=== PATIENT | female | born 1960 | race Caucasian/White ===

== ENCOUNTER 2018-08-10 23:07 | Inpatient (IN) ==
[2018-08-11 03:21] LABS: Baso % (Auto) 0.7 % (0.0-2.0); Eos # (Auto) 0.1 th/mm3 (0.0-0.4); Eos % (Auto) 2.4 % (0.0-4.0); Hematocrit 42.7 % (35.0-46.0); Hemoglobin 14.4 gm/dL (11.6-15.3); Lymph # (Auto) 2.4 th/mm3 (1.0-4.8); Lymph % (Auto) 47.2 % (9.0-44.0); Mean Corpuscular HGB Conc 33.8 % (32.0-36.0); Mean Corpuscular Hemoglobin 32.3 pg (27.0-34.0); Mean Corpuscular Volume 95.5 fL (80.0-100.0); Mean Platelet Volume 7.8 fL (7.0-11.0); Mono # (Auto) 0.4 th/mm3 (0.0-0.9); Mono % (Auto) 7.1 % (0.0-8.0); Neut # (Auto) 2.2 th/mm3 (1.8-7.7); Neut % (Auto) 42.6 % (16.0-70.0); Platelet Count 178 th/mm3 (150-450); Red Blood Count 4.47 mil/mm3 (4.00-5.30); Red Cell Distribution Width 13.5 % (11.6-17.2); White Blood Count 5.2 th/mm3 (4.0-11.0)
--- NOTE | 2018-08-11 03:30 | XR ---
EXAM DATE: 08/11/2018 3:24 AM EDT AGE/SEX: 57 years / Female INDICATIONS: Shortness of breath. CLINICAL DATA: This is the patient's initial encounter. Patient reports that signs and symptoms have been present for 1 day and indicates a pain score of 0/10. MEDICAL/SURGICAL HISTORY: None. None. COMPARISON: [facility], XR CHEST PA AND LAT, 11/04/2015. . FINDINGS: There is slight linear parenchymal opacity at the left lung base which may be a chronic finding. Righ t lung is clear. No significant effusion suspected. Cardiac contours are stable and satisfactory. CONCLUSION: Mild parenchymal opacity at the left lung base, similar to prior study Electronically signed by: Paresh Casas MD 08/11/2018 3:29 AM EDT
[2018-08-11 03:47] LABS: Alkaline Phosphatase 146 U/L (45-117); Total Protein 7.1 g/dL (6.4-8.2); Troponin I 0.15 ng/mL (0.02-0.05)
[2018-08-11] MEDS ORDERED: Acetaminophen 325 MG Tablet PO PRN (03:54)
[2018-08-11] MEDS ORDERED: Bisacodyl 10 MG Supp RECTAL PRN (03:54)
[2018-08-11 03:57] LABS: Alanine Aminotransferase 26 U/L (10-53); Albumin 3.8 g/dL (3.4-5.0); Anion Gap 8 meq/L (5-15); Aspartate Aminotransferase 22 U/L (15-37); Blood Urea Nitrogen 10 mg/dL (7-18); Calcium 8.6 mg/dL (8.5-10.1); Carbon Dioxide 26.2 meq/L (21.0-32.0); Chloride 109 meq/L (98-107); Glomerular Filtration Rate 39 mL/min (>89); Glucose,Random 96 mg/dL (74-106); Potassium 3.8 meq/L (3.5-5.1); Sodium 143 meq/L (136-145)
[2018-08-11] MEDS ORDERED: Sodium Chloride 0.9% 2 ML Flush PRN IV.FLUSH (04:09)
--- NOTE | 2018-08-11 04:12 | ED ---
HPI General Chief Complaint: Medical Clearance Stated Complaint: SOB/headache Time Seen by Provider: 08/11/18 02:47 Source: patient and family Mode of arrival: ambulatory Limitations: no limitations History of Present Illness HPI narrative: 57-year-old female came to the emergency room with history of substernal chest pain that has been off and on for past 1 month but progressively worsening over past 1 week. However since 10 PM of 08/09/2018 patient has been having continuous chest pain. Yesterday when she woke up she noticed that the pain was worse upon exertion. She also started having shortness of breath mostly on exertion. Her son is here with her who lives in [place] but says that she has been having progressive shortness of breath on exertion that has been going on for a few days now. As per the son patient likes to downplay her symptoms and he is really concerned about her. Patient has never had any cardiac workup. She has history of COPD. She does not require oxygen at home. No previous history of DVT or PE. No recent prolonged immobilization. Patient said currently her pain was 5 out of 10 with no radiation. MD complaint: Reports chest pain STEMI Alert: No Onset (ago): day(s) Duration: constant Onset: during exertion Pain location: Reports substernal Severity: moderate Severity scale (1-10): 5 Quality: Reports heaviness Pain radiation: Reports none Relieving factors: rest Exacerbating factors: movement Associated symptoms: Reports dyspnea Related Data Home Medications Medication Instructions Recorded Confirmed atorvastatin 40 mg PO DAILY 08/11/18 08/11/18 budesonide-formoterol [Symbicort] 2 puff INHALATION BID 08/11/18 08/11/18 chlorpromazine 25 mg PO BID 08/11/18 08/11/18 cyclobenzaprine 10 mg PO BID 08/11/18 08/11/18 divalproex 500 mg PO BID 08/11/18 08/11/18 hydroxyzine HCl 50 mg PO BID 08/11/18 08/11/18 levothyroxine 175 mcg PO DAILY 08/11/18 08/11/18 quetiapine 50 mg PO BID 08/11/18 08/11/18 quetiapine 300 mg PO HS 08/11/18 08/11/18 ranitidine HCl 150 mg PO DAILY 08/11/18 08/11/18 sucralfate 1 g PO DAILY 08/11/18 08/11/18 sumatriptan succinate 50 mg PO HS 08/11/18 08/11/18 venlafaxine 100 mg PO DAILY 08/11/18 08/11/18 Allergies Allergy/AdvReac Type Severity Reaction Status Date / Time No Known Allergies Allergy Uncoded 06/29/17 09:56 Review of Systems ROS: all other systems reviewed are negative Cardiovascular Reports chest pain at rest Respiratory Reports dyspnea on exertion [facility] Medical History Medical History Asthma (Acute) Chronic kidney disease (Acute) Chronic migraine (Acute) History of endoscopy (Acute) Social History Social History Substance History: No History of Abuse Second Hand Smoke Exposure: No Smoking Status: Former smoker Tobacco Type: Cigarettes How Often Do You Have a Drink Containing Alcohol: 2 to 4 times a month Recent Travel in [facility] within the Last 8 Weeks: No Recent Out of Country Travel within the Last 8 Weeks: No Immunization History Tetanus Immunization: <5 Years Exam Narrative Exam Narrative: GENERAL: Awake, alert, anxious, mild distress SKIN: Focused skin assessment warm/dry. HEAD: Atraumatic. Normocephalic. EYES: Pupils equal and round. No scleral icterus. No injection or drainage. ENT: No nasal bleeding or discharge. Mucous membranes pink and moist. NECK: Trachea midline. No JVD. CARDIOVASCULAR: Regular rate and rhythm. No murmur appreciated. RESPIRATORY: No accessory muscle use. Clear to auscultation. Breath sounds equal bilaterally. GASTROINTESTINAL: Abdomen soft, non-tender, nondistended. Hepatic and splenic margins not palpable. MUSCULOSKELETAL: No obvious deformities. No clubbing. No cyanosis. No edema. NEUROLOGICAL: Awake and alert. No obvious cranial nerve deficits. Motor grossly within normal limits. Normal speech. PSYCHIATRIC: Appropriate mood and affect; insight and judgment normal. Course Initial Documented Vital Signs Temperature 97.7 F 08/10/18 23:35 Pulse Rate 102 H 08/10/18 23:35 Respiratory Rate 18 08/10/18 23:35 Blood Pressure 136/74 08/10/18 23:35 Pulse Oximetry 98 08/10/18 23:35 Last Documented Vital Signs Temperature 98.3 F 08/12/18 23:33 Pulse Rate 65 08/12/18 23:33 Respiratory Rate 18 08/12/18 23:33 Blood Pressure 140/72 08/12/18 23:33 Pulse Oximetry 96 08/12/18 23:33 Critical Care Time Critical Care Time: Yes Total Critical Care Time: 30 Attestation: Aggregate critical care time was 30 minutes. Time to perform other separately billable procedures was not included in the critical care time. My time did not include minutes spent treating any other patients simultaneously or on activities that did not directly contribute to the patient's treatment. The services I provided to this patient were to treat and/or prevent clinically significant deterioration that could result in: Non-STEMI, heparin bolus and I provided critical care services requiring my management, as noted below: Chart data review, documentation time, medication orders and management, vital sign assessments/reviewing monitor data, ordering and reviewing lab tests, ordering and interpreting/reviewing x-rays and diagnostic studies, care of the patient and discussion of the patient with the admitting physicians. Medical Decision Making MDM Narrative Medical decision making narrative: 4:18 AM blood test results are back and troponin is elevated. I explained all this to the patient. She will be started on heparin bolus and drip. She was accepted by the hospitalist. Medical Screen Exam Complete: Yes Emergency Medical Condition: Yes Lab Data Result diagrams: 08/12/18 11:10 08/12/18 11:10 Lab Results 08/11/18 08/11/18 08/11/18 Range/Units 03:00 03:00 03:00 WBC 5.2 (4.0-11.0) th/mm3 RBC 4.47 (4.00-5.30) mil/mm3 Hgb 14.4 (11.6-15.3) gm/dL Hct 42.7 (35.0-46.0) % MCV 95.5 (80.0-100.0) fL MCH 32.3 (27.0-34.0) pg MCHC 33.8 (32.0-36.0) % RDW 13.5 (11.6-17.2) % Plt Count 178 (150-450) th/mm3 MPV 7.8 (7.0-11.0) fL Neut % (Auto) 42.6 (16.0-70.0) % Lymph % (Auto) 47.2 H (9.0-44.0) % Marin % (Auto) 7.1 (0.0-8.0) % Eos % (Auto) 2.4 (0.0-4.0) % Baso % (Auto) 0.7 (0.0-2.0) % Neut # (Auto) 2.2 (1.8-7.7) th/mm3 Lymph # (Auto) 2.4 (1.0-4.8) th/mm3 Marin # (Auto) 0.4 (0.0-0.9) th/mm3 Eos # (Auto) 0.1 (0.0-0.4) th/mm3 Baso # (Auto) 0.0 (0.0-0.2) th/mm3 WBC Differential . Differential Comment Auto diff final PT (9.8-11.6) sec INR Ratio APTT (23.4-31.7) sec D-Dimer Quant (PE/DVT) 0.19 (0.00-0.50) mg/L FEU Sodium 143 (136-145) meq/L Potassium 3.8 (3.5-5.1) meq/L Chloride 109 H (98-107) meq/L Carbon Dioxide 26.2 (21.0-32.0) meq/L Anion Gap 8 (5-15) meq/L BUN 10 (7-18) mg/dL Creatinine 1.40 H (0.50-1.00) mg/dL Estimated GFR 39 L (>89) mL/min Random Glucose 96 (74-106) mg/dL Hemoglobin A1c (4.3-6.0) % Calcium 8.6 (8.5-10.1) mg/dL Total Bilirubin 0.4 (0.2-1.0) mg/dL AST 22 (15-37) U/L ALT 26 (10-53) U/L Alkaline Phosphatase 146 H (45-117) U/L Troponin I 0.15 H (0.02-0.05) ng/mL Total Protein 7.1 (6.4-8.2) g/dL Albumin 3.8 (3.4-5.0) g/dL Triglycerides (42-150) mg/dL Cholesterol (120-200) mg/dL LDL Cholesterol, Calc (0-99) mg/dL HDL Cholesterol (40.0-60.0) mg/dL Cholesterol/HDL Ratio Ratio Beta HCG, Quant (0-5) mIU/mL 08/11/18 08/11/18 08/11/18 Range/Units 03:00 06:21 06:21 WBC 5.4 (4.0-11.0) th/mm3 RBC 4.38 (4.00-5.30) mil/mm3 Hgb 14.4 (11.6-15.3) gm/dL Hct 42.9 (35.0-46.0) % MCV 97.9 (80.0-100.0) fL MCH 32.9 (27.0-34.0) pg MCHC 33.6 (32.0-36.0) % RDW 13.8 (11.6-17.2) % Plt Count 169 (150-450) th/mm3 MPV 8.0 (7.0-11.0) fL Neut % (Auto) (16.0-70.0) % Lymph % (Auto) (9.0-44.0) % Marin % (Auto) (0.0-8.0) % Eos % (Auto) (0.0-4.0) % Baso % (Auto) (0.0-2.0) % Neut # (Auto) (1.8-7.7) th/mm3 Lymph # (Auto) (1.0-4.8) th/mm3 Marin # (Auto) (0.0-0.9) th/mm3 Eos # (Auto) (0.0-0.4) th/mm3 Baso # (Auto) (0.0-0.2) th/mm3 WBC Differential Differential Comment PT 10.1 (9.8-11.6) sec INR 1.0 Ratio APTT 26.9 (23.4-31.7) sec D-Dimer Quant (PE/DVT) (0.00-0.50) mg/L FEU Sodium (136-145) meq/L Potassium (3.5-5.1) meq/L Chloride (98-107) meq/L Carbon Dioxide (21.0-32.0) meq/L Anion Gap (5-15) meq/L BUN (7-18) mg/dL Creatinine (0.50-1.00) mg/dL Estimated GFR (>89) mL/min Random Glucose (74-106) mg/dL Hemoglobin A1c 5.1 (4.3-6.0) % Calcium (8.5-10.1) mg/dL Total Bilirubin (0.2-1.0) mg/dL AST (15-37) U/L ALT (10-53) U/L Alkaline Phosphatase (45-117) U/L Troponin I (0.02-0.05) ng/mL Total Protein (6.4-8.2) g/dL Albumin (3.4-5.0) g/dL Triglycerides (42-150) mg/dL Cholesterol (120-200) mg/dL LDL Cholesterol, Calc (0-99) mg/dL HDL Cholesterol (40.0-60.0) mg/dL Cholesterol/HDL Ratio Ratio Beta HCG, Quant (0-5) mIU/mL 08/11/18 08/11/18 08/11/18 Range/Units 09:59 10:35 17:04 WBC (4.0-11.0) th/mm3 RBC (4.00-5.30) mil/mm3 Hgb (11.6-15.3) gm/dL Hct (35.0-46.0) % MCV (80.0-100.0) fL MCH (27.0-34.0) pg MCHC (32.0-36.0) % RDW (11.6-17.2) % Plt Count (150-450) th/mm3 MPV (7.0-11.0) fL Neut % (Auto) (16.0-70.0) % Lymph % (Auto) (9.0-44.0) % Marin % (Auto) (0.0-8.0) % Eos % (Auto) (0.0-4.0) % Baso % (Auto) (0.0-2.0) % Neut # (Auto) (1.8-7.7) th/mm3 Lymph # (Auto) (1.0-4.8) th/mm3 Marin # (Auto) (0.0-0.9) th/mm3 Eos # (Auto) (0.0-0.4) th/mm3 Baso # (Auto) (0.0-0.2) th/mm3 WBC Differential Differential Comment PT (9.8-11.6) sec INR Ratio APTT 40.9 H D 46.2 H (23.4-31.7) sec D-Dimer Quant (PE/DVT) (0.00-0.50) mg/L FEU Sodium (136-145) meq/L Potassium (3.5-5.1) meq/L Chloride (98-107) meq/L Carbon Dioxide (21.0-32.0) meq/L Anion Gap (5-15) meq/L BUN (7-18) mg/dL Creatinine (0.50-1.00) mg/dL Estimated GFR (>89) mL/min Random Glucose (74-106) mg/dL Hemoglobin A1c (4.3-6.0) % Calcium (8.5-10.1) mg/dL Total Bilirubin (0.2-1.0) mg/dL AST (15-37) U/L ALT (10-53) U/L Alkaline Phosphatase (45-117) U/L Troponin I 0.11 H (0.02-0.05) ng/mL Total Protein (6.4-8.2) g/dL Albumin (3.4-5.0) g/dL Triglycerides 74 (42-150) mg/dL Cholesterol 156 (120-200) mg/dL LDL Cholesterol, Calc 61 (0-99) mg/dL HDL Cholesterol 80.7 H (40.0-60.0) mg/dL Cholesterol/HDL Ratio 1.93 Ratio Beta HCG, Quant (0-5) mIU/mL 08/12/18 08/12/18 08/12/18 Range/Units 11:10 11:10 11:10 WBC 4.0 (4.0-11.0) th/mm3 RBC 4.19 (4.00-5.30) mil/mm3 Hgb 14.1 (11.6-15.3) gm/dL Hct 40.0 (35.0-46.0) % MCV 95.5 (80.0-100.0) fL MCH 33.6 (27.0-34.0) pg MCHC 35.1 (32.0-36.0) % RDW 13.5 (11.6-17.2) % Plt Count 132 L (150-450) th/mm3 MPV 8.1 (7.0-11.0) fL Neut % (Auto) 55.5 (16.0-70.0) % Lymph % (Auto) 34.8 (9.0-44.0) % Marin % (Auto) 6.4 (0.0-8.0) % Eos % (Auto) 2.9 (0.0-4.0) % Baso % (Auto) 0.4 (0.0-2.0) % Neut # (Auto) 2.2 (1.8-7.7) th/mm3 Lymph # (Auto) 1.4 (1.0-4.8) th/mm3 Marin # (Auto) 0.3 (0.0-0.9) th/mm3 Eos # (Auto) 0.1 (0.0-0.4) th/mm3 Baso # (Auto) 0.0 (0.0-0.2) th/mm3 WBC Differential . Differential Comment Auto diff final PT (9.8-11.6) sec INR Ratio APTT 49.5 H (23.4-31.7) sec D-Dimer Quant (PE/DVT) (0.00-0.50) mg/L FEU Sodium 145 (136-145) meq/L Potassium 3.9 (3.5-5.1) meq/L Chloride 113 H (98-107) meq/L Carbon Dioxide 24.0 (21.0-32.0) meq/L Anion Gap 8 (5-15) meq/L BUN 7 (7-18) mg/dL Creatinine 1.05 H (0.50-1.00) mg/dL Estimated GFR 54 L (>89) mL/min Random Glucose 96 (74-106) mg/dL Hemoglobin A1c (4.3-6.0) % Calcium 8.4 L (8.5-10.1) mg/dL Total Bilirubin 0.4 (0.2-1.0) mg/dL AST 20 (15-37) U/L ALT 23 (10-53) U/L Alkaline Phosphatase 131 H (45-117) U/L Troponin I (0.02-0.05) ng/mL Total Protein 6.7 (6.4-8.2) g/dL Albumin 3.4 (3.4-5.0) g/dL Triglycerides (42-150) mg/dL Cholesterol (120-200) mg/dL LDL Cholesterol, Calc (0-99) mg/dL HDL Cholesterol (40.0-60.0) mg/dL Cholesterol/HDL Ratio Ratio Beta HCG, Quant 5 (0-5) mIU/mL Imaging Data Radiologist's impression: Chest X-Ray 08/11/18 03:03 CONCLUSION: Mild parenchymal opacity at the left lung base, similar to prior study ECG Data Interpretation: Twelve-lead EKG was reviewed by me. Normal sinus rhythm, left axis deviation, nonspecific ST-T wave changes. Heart rate of 96 bpm. Discharge Plan Discharge Disposition Patient Disposition: 30 Still Patient Physicians Team ED Provider: Ghislaine Merlos Primary Care Provider: Kevyn Rausch III Attending Provider: Pam Trent Other Providers: Domo Kaiser Discharge Interventions Interventions: ED Discharge Assessment Last Done: 08/11/18 08:19 Vital Signs Last Done: 08/11/18 02:25 Status ED Status: Left Department Discharge Information Discharge Date/Time: 08/11/18 08:20
--- NOTE | 2018-08-11 04:30 | P.HPIM ---
History of Present Illness Primary Care Physician: Kevyn Rausch III, MD, R2 History of Present Illness: This is a 57-year-old female with a PMH of Migraine, CKD Stage III and h/o Hemiplegic Migraine who presented to the ER w/ complaints of chest pain, SOB and migraine. States chest pain has been ongoing x1 month, intermittent, substernal, associated w/ SOB, worse w/ exertion. No h/o similar symptoms. Also reports ongoing migraine, previously on Topamax but h/o CVA 7yrs ago thought to be [employer]ORD[employer] Migraine. Denies fever or chills. On arrival, BP 136/74, HR 102, O2 sat 98% on RA, Afebrile. CBC unremarkable. Creatinine 1.40, no labs in our system, however pt pulled up [facility] results w/ creatinine 1.36. Trop 0.15. EKG w/ no acute ischemia. CXR w/ mild parenchymal opacity LLL, similar to previous study. Currently on Heparin gtt. - Diagnosis (1) NSTEMI (non-ST elevated myocardial infarction) (2) CKD (chronic kidney disease) (3) Migraine Inpatient Certification: I certify that the inpatient services were ordered in accordance with Medicare regulations governing the order. This includes certification that hospital inpatient services are reasonable and necessary and in the case of services not specified as inpatient-only under 42 CFR 419.22(n), that they are appropriately provided as inpatient services in accordance to with the 2-midnight benchmark under 43 CFR 412.3(e) Estimated Total Length of Stay (Days): 2 Plans for Post Hospital Care: Not yet determined Review of Systems PAST FAMILY HISTORY: Reviewed. No h/o DM or CAD All other systems reviewed negative except as stated in HPI PMFSH - History History Provided By: Patient - Medical History Medical History: Medical History (Last Reviewed 08/11/18 @ 04:17 by Ghislaine Merlos MD) Asthma Chronic kidney disease Chronic migraine History of endoscopy - Tobacco History Second Hand Smoke Exposure: No Tobacco Use In Past 30 Days: No Smoking Status: Former smoker - Alcohol History How Often Do You Have a Drink Containing Alcohol: Never - Substance Use History Substance History: No History of Abuse - Travel History Recent Travel in the [place] Within the Last 8 Weeks: No Recent Travel Out of the Country Within the Last 8 Weeks: No - Immunization History Tetanus Immunization: <5 Years Medications and Allergies Active Medications: Active Medications Acetaminophen (Tylenol) 650 mg PO Q4H PRN PRN Reason: Temp > 100.4 Al Hydroxide/Mg Hydroxide (Milk Of Magnesia Liq) 30 ml PO Q12H PRN PRN Reason: Mild Constipation Aspirin (Ecotrin) 81 mg PO DAILY [facility] Bisacodyl (Dulcolax Supp) 10 mg RECTAL DAILY PRN PRN Reason: SEVERE CONSITIPATION Sodium Chloride (Ns Inj) 1,000 mls @ 100 mls/hr IV.CONT .Q10H [facility] Heparin Sodium/Dextrose (Heparin/D5w 25,000 U/250 Ml) 25,000 unit in 250 mls @ 0 mls/hr IV.CONT TITRATE PRN; Protocol PRN Reason: Per Protocol Lactulose (Lactulose Liq) 30 ml PO DAILY PRN PRN Reason: SEVERE CONSITIPATION Metoprolol Tartrate (Lopressor) 12.5 mg PO BID [facility] Morphine Sulfate (Morphine Inj) 2 mg IV.PUSH Q4H PRN PRN Reason: PAIN 6-10 Nitroglycerin (Nitro-Bid 2% Oint) 0.5 inch TOPICAL Q6HR PRN PRN Reason: CHEST PAIN Ondansetron HCl (Zofran Inj) 4 mg IV.PUSH Q6H PRN PRN Reason: NAUSEA OR VOMITING Pravastatin Sodium (Pravachol) 40 mg PO DAILY [facility] Senna/Docusate Sodium (Jenna-Colace) 1 tab PO BID [facility] Sennosides (Senokot) 17.2 mg PO Q12H PRN PRN Reason: Moderate Constipation Sodium Chloride (Ns Flush) 2 ml IV.FLUSH BID [facility] Sodium Chloride (Ns Flush) 2 ml IV.FLUSH PRN PRN PRN Reason: FLUSH AFTER USING IV ACCESS Allergies Allergy/AdvReac Type Severity Reaction Status Date / Time No Known Allergies Allergy Uncoded 06/29/17 09:56 Home Medications Medication Instructions Recorded Confirmed Type atorvastatin 40 mg PO DAILY 08/11/18 08/11/18 History budesonide-formoterol [Symbicort] 2 puff INHALATION BID 08/11/18 08/11/18 History chlorpromazine 25 mg PO BID 08/11/18 08/11/18 History cyclobenzaprine 10 mg PO BID 08/11/18 08/11/18 History divalproex 500 mg PO BID 08/11/18 08/11/18 History hydroxyzine HCl 50 mg PO BID 08/11/18 08/11/18 History levothyroxine 175 mcg PO DAILY 08/11/18 08/11/18 History quetiapine 50 mg PO BID 08/11/18 08/11/18 History quetiapine 300 mg PO HS 08/11/18 08/11/18 History ranitidine HCl 150 mg PO DAILY 08/11/18 08/11/18 History sucralfate 1 g PO DAILY 08/11/18 08/11/18 History sumatriptan succinate 50 mg PO HS 08/11/18 08/11/18 History venlafaxine 100 mg PO DAILY 08/11/18 08/11/18 History Exam Vital signs: Vital Signs 08/10/18 23:35 08/11/18 02:25 08/11/18 04:03 Temperature 97.7 F Pulse Rate 102 H 90 93 H Respiratory Rate 18 20 Blood Pressure 136/74 158/70 H Pulse Oximetry 98 100 99 Intake & Output 08/10/18 08/10/18 08/11/18 06:59 18:59 06:59 Weight 86.183 kg Narrative: PE: GENERAL: Extremely pleasant middle-aged female in no acute distress. SKIN: Focused skin assessment warm and dry. Vitiligo HEENT: PERRLA, EOMI. No scleral icterus or conjunctival pallor. No lid lag or facial droop. CARDIOVASCULAR: Regular rate and rhythm. No obvious murmurs to auscultation. No chest tenderness to palpation. RESPIRATORY: No obvious rhonchi or wheezing. Clear to auscultation. Breath sounds equal bilaterally. GASTROINTESTINAL: Abdomen soft, non-tender, nondistended. BS normal. MUSCULOSKELETAL: Extremities without clubbing, cyanosis, or edema. No obvious deformities. NEUROLOGICAL: Awake, alert and oriented x4. No focal neurologic deficits. Moving both upper and lower extremities spontaneously. PSYCHIATRIC: Appropriate mood and affect. Insight and judgment normal. Results - Labs CBC & Chem 7: 08/11/18 03:00 08/11/18 03:00 Labs: Short CBC 08/11/18 Range/Units 03:00 WBC 5.2 (4.0-11.0) th/mm3 Hgb 14.4 (11.6-15.3) gm/dL Hct 42.7 (35.0-46.0) % Plt Count 178 (150-450) th/mm3 BMP 08/11/18 03:00 Sodium 143 Potassium 3.8 Chloride 109 H Carbon Dioxide 26.2 BUN 10 Creatinine 1.40 H Calcium 8.6 Cardiac Enzymes 08/11/18 Range/Units 03:00 Troponin I 0.15 H (0.02-0.05) ng/mL Liver Function 08/11/18 Range/Units 03:00 Total Bilirubin 0.4 (0.2-1.0) mg/dL AST 22 (15-37) U/L ALT 26 (10-53) U/L Alkaline Phosphatase 146 H (45-117) U/L Albumin 3.8 (3.4-5.0) g/dL - Imaging Impressions Chest X-Ray 08/11/18 03:03 CONCLUSION: Mild parenchymal opacity at the left lung base, similar to prior study Caprini VTE Risk Assessment Caprini VTE Risk Assessment: Moderate/High Risk (score >= 2) Caprini Risk Assessment Model: Point Value = 1 Point Value = 2 Point Value = 3 Point Value = 5 Age 41-60 Minor surgery BMI > 25 kg/m2 Swollen legs Varicose veins or History of unexplained or recurrent spontaneous Oral contraceptives or hormone replacement Sepsis (< 1 month) Serious lung disease, including pneumonia (< 1 month) Abnormal pulmonary function Acute myocardial infarction Congestive heart failure (< 1 month) History of inflammatory bowel disease Medical patient at bed rest Age 61-74 Arthroscopic surgery Major open surgery (> 45 min) Laparoscopic surgery (> 45 min) Malignancy Confined to bed (> 72 hours) Immobilizing plaster cast Central venous access Age >= 75 History of VTE Family history of VTE Factor V Leiden Prothrombin [id number] Lupus anticoagulant Anticardiolipin antibodies Elevated serum homocysteine Heparin-induced thrombocytopenia Other congenital or acquired thrombophilia Stroke (< 1 month) Elective arthroplasty Hip, pelvis, or leg fracture Acute spinal cord injury (< 1 month) Prophylaxis Regimen: Total Risk Factor Score Risk Level Prophylaxis Regimen 0-1 Low Early ambulation 2 Moderate Order ONE of the following: *Sequential Compression Device (SCD) *Heparin 5000 units SQ BID 3-4 Higher Order ONE of the following medications: *Heparin 5000 units SQ TID *Enoxaparin/Lovenox 40 mg SQ daily (WT < 150 kg, CrCl > 30 mL/min) *Enoxaparin/Lovenox 30 mg SQ daily (WT < 150 kg, CrCl > 10-29 mL/min) *Enoxaparin/Lovenox 30 mg SQ BID (WT < 150 kg, CrCl > 30 mL/min) AND/OR *Sequential Compression Device (SCD) 5 or more Highest Order ONE of the following medications: *Heparin 5000 units SQ TID (Preferred with Epidurals) *Enoxaparin/Lovenox 40 mg SQ daily (WT < 150 kg, CrCl > 30 mL/min) *Enoxaparin/Lovenox 30 mg SQ daily (WT < 150 kg, CrCl > 10-29 mL/min) *Enoxaparin/Lovenox 30 mg SQ BID (WT < 150 kg, CrCl > 30 mL/min) AND *Sequential Compression Device (SCD) Assessment and Plan - Assessment (1) NSTEMI (non-ST elevated myocardial infarction) Code(s): I21.4 - Non-ST elevation (NSTEMI) myocardial infarction Status: Acute (2) CKD (chronic kidney disease) Code(s): N18.9 - Chronic kidney disease, unspecified Status: Acute (3) Migraine Code(s): G43.909 - Migraine, unspecified, not intractable, without status migrainosus Status: Acute - Plan A/P: 1. NSTEMI: c/o intermittent chest pain x1 month, worse w/ exertion, Trop 0.15 , EKG w/ no acute ischemia, currently on Heparin gtt, will admit to [facility], telemetry, continue Heparin, check serial cardiac enzymes for trend. Check Lipid Profile and Hgb A1c. Start ASA, Statin and Metoprolol. Consult Cardiology for further eval/intervention. NPO. NTG/Morphine prn. 2. CKD: Stage III, creatinine 1.40, pt able to pull up labs from [facility] on her cell phone, creatinine 1.36, will monitor closely, I/O, repeat labs in am. 3. Migraine: h/o Migraine Headaches, previously on Topamax however discontinued 7yrs ago after CVA-thought to be [employer] Migraine. Avoid Imitrex/ triptans in light of acute NSTEMI, Benadryl/Compazine and Morphine if needed. 4. DVT Prophylaxis: Heparin gtt 5. Social work for d/c planning as needed. 6. Case discussed w/ ER physician at length, labs/records/imaging reviewed by me.
[2018-08-11 04:32] LABS: Activated Partial Thrombo Time 26.9 sec (23.4-31.7); Prothrombin Time 10.1 sec (9.8-11.6)
[2018-08-11] MEDS: Heparin Drip 25,000 UNIT/250 ML BAG IV.CONT PRN (04:40)
[2018-08-11] MEDS: Sod Chloride 0.9% Inj 1,000 ML IV.CONT SCH ×2 (04:47→15:30)
[2018-08-11 08:29] LABS: Hematocrit 42.9 % (35.0-46.0); Hemoglobin 14.4 gm/dL (11.6-15.3); Mean Corpuscular HGB Conc 33.6 % (32.0-36.0); Mean Corpuscular Hemoglobin 32.9 pg (27.0-34.0); Mean Corpuscular Volume 97.9 fL (80.0-100.0); Platelet Count 169 th/mm3 (150-450); Red Blood Count 4.38 mil/mm3 (4.00-5.30); Red Cell Distribution Width 13.8 % (11.6-17.2); White Blood Count 5.4 th/mm3 (4.0-11.0)
[2018-08-11] MEDS ORDERED: Nitroglycerin Drip Premix 50 MG/250 ML BOTTLE IV.CONT PRN (09:08)
[2018-08-11] MEDS: Senna/Docusate Sodium 8.6/50 MG Tablet PO SCH ×2 (09:53→20:36)
[2018-08-11] MEDS: Metoprolol Tartrate 25 MG Tablet PO SCH ×2 (09:53→20:35)
[2018-08-11] MEDS: Sodium Chloride 0.9% 2 ML Flush BID IV.FLUSH SCH ×2 (09:54→20:54)
--- NOTE | 2018-08-11 10:32 | MB ---
cc: Trever Negrete MD DATE: 08/11/2018 REASON FOR CONSULTATION: Non-ST elevation myocardial infarction. HISTORY OF PRESENT ILLNESS: The patient is a very pleasant 57-year-old woman with a history of prior tobacco abuse, quit about 5 months ago, who denies any specific cardiac problems who presented with a squeezing chest discomfort she rates a 7/10 in severity. In the emergency department, her initial troponin was slightly elevated. She was started on a heparin drip and admitted for workup. The patient says she still has about 5/10 chest pain, though she looks quite comfortable in bed currently. No shortness of breath, lightheadedness, dizziness or syncope. PAST MEDICAL HISTORY: 1. Prior tobacco abuse, quit about 5 months ago, but more than 30 years of smoking. 2. Stage III chronic kidney disease. 3. Hypertension. 4. Hyperlipidemia. CURRENT MEDICATIONS: 1. Aspirin. 2. Heparin drip. 3. Lopressor 12.5 mg b.i.d. 4. Nitroglycerin drip was just started. 5. Pravachol 40 mg daily. ALLERGIES: NO KNOWN DRUG ALLERGIES. PHYSICAL EXAMINATION: VITAL SIGNS: Afebrile, pulse 96, respiratory rate 18, BP 146/97, saturating 99% on room air. GENERAL: Pleasant woman in no distress. NECK: No JVD. LUNGS: Clear to auscultation bilaterally. CARDIOVASCULAR: Regular rate and rhythm. No significant murmur appreciated. ABDOMEN: Benign. EXTREMITIES: No edema. LABORATORY DATA: Sodium 143, potassium 3.8, chloride 100, bicarbonate 26.2, BUN 10, creatinine 1.4, glucose was 96. Troponin was 0.15, INR 1.0. White count 5.4, hematocrit 42.9, platelets 169. EKG shows sinus rhythm with no significant ST or T-wave changes. IMPRESSION: Elevated troponin with chest pain. The patient has a reasonably convincing story for cardiac chest pain and her troponin is slightly elevated. She certainly has risk factors including hypertension and tobacco abuse as well as hyperlipidemia. At this point, I think a cardiac catheterization is most likely to be the best course of action given her ongoing chest discomfort, though potentially if her kidney function does not improve or worsens, we could consider a nuclear stress test first, but again at this point, my plan will be for a cardiac catheterization on Monday, likely by Dr. Kaiser. Further recommendations based on the above, I have added a nitroglycerin drip, given her ongoing chest pain. Thank you again for the opportunity to participate in this patient's care. MD DUY Holder/maegan , 09:14 AM , 09:21 AM
[2018-08-11] MEDS ORDERED: Influenza (Quadrivalent) Vaccine 0.5 ML Syringe IM ONE (11:00)
[2018-08-11 11:29] LABS: Chol/HDL Ratio 1.93 Ratio; HDL Cholesterol 80.7 mg/dL (40.0-60.0); Troponin I 0.11 ng/mL (0.02-0.05)
[2018-08-11 13:20] LABS: Hemoglobin A1c 5.1 % (4.3-6.0)
--- NOTE | 2018-08-11 14:27 | MB ---
cc: Domo Kaiser DO DATE: 08/11/2018 REASON FOR CONSULTATION: Chest pain, elevated troponin. HISTORY OF PRESENT ILLNESS: Radhika Locke is a pleasant 57-year-old female who presented to [place] due to chest pain and shortness of breath. She states that the chest pain has kind of been on and off for the past month and seemed to come and go as it pleased. She did not think much of it, but she started getting more short of breath with exertion. She apparently started having more chest pain, prompting her to come to the emergency room. On arrival, she was found to have an elevated troponin of 0.15 and started on a heparin drip. She was evaluated by Dr. Negrete this morning, who asked me to see her for consideration of cardiac catheterization. In seeing her, she states that her chest pain feels like a crushing sensation around the center of her chest. It does not appear to radiate anywhere. She is still having minimal pain at this point and is currently being started on a nitroglycerin drip. PAST MEDICAL HISTORY: 1. Asthma. 2. Chronic kidney disease. 3. Migraines. 4. Questionable neurological event 7 years ago, which originally was thought to be a CVA but now thought to be a complex migraine. PAST SURGICAL HISTORY: Denies. ALLERGIES: NO KNOWN DRUG ALLERGIES. MEDICATIONS: 1. Chlorpromazine 25 mg b.i.d. 2. Symbicort 2 puffs b.i.d. 3. Zantac 150 mg daily. 4. Synthroid 175 mcg daily. 5. Sumatriptan 50 mg every night. 6. Lipitor 40 mg daily. 7. Divalproex 500 mg b.i.d. 8. Venlafaxine 100 mg daily. 9. Quetiapine 50 mg b.i.d. and 300 mg every night. 10. Cyclobenzaprine 10 mg b.i.d. 11. Hydroxyzine 50 mg b.i.d. 12. Sucralfate 1 g daily. FAMILY HISTORY: She denies premature coronary artery disease or sudden cardiac within the family. SOCIAL HISTORY: The patient is a former smoker. She denies alcohol or drug abuse. REVIEW OF SYSTEMS: Fourteen systems were reviewed including osteopathic. Pertinent positives and negatives above, otherwise negative. PHYSICAL EXAMINATION: VITAL SIGNS: Temperature 98.4, heart rate 88, blood pressure 134/68, respirations 18, pulse oximetry 99% on room air. GENERAL: The patient appears well, no acute distress. Alert, awake and oriented x3. HEENT: Extraocular muscles intact. Mucous membranes moist. NECK: Supple. No JVD at 45 degrees. No carotid bruits heard bilaterally. Carotid upstroke is brisk in nature. HEART: Regular rate and rhythm. Positive first and second heart sounds with no noted murmurs, gallops, or rubs. LUNGS: Clear to auscultation bilaterally. No wheezes, rales, or rhonchi. ABDOMEN: Soft, nontender, nondistended. No organomegaly noted. EXTREMITIES: No clubbing, cyanosis, or edema. Femoral and distal pulses intact bilaterally. NEUROLOGIC: No focal deficits. SKIN: Warm, dry, and intact. OSTEOPATHIC: No kyphoscoliosis, lordosis, or paraspinal tender points. LABORATORY DATA: Hemoglobin 14.4, hematocrit 42.9, platelets 169. Potassium 3.8, BUN 10, creatinine 1.4. Troponin 0.15 decreasing to 0.11. Electrocardiogram (08/10/2018 at 2347): Sinus rhythm, marked left axis deviation, no acute ST-T wave changes. IMPRESSION: 1. Chest pain concerning for coronary insufficiency. 1. [id number] myocardial infarction. 2. Chronic kidney disease. 3. Migraines. 4. Hypertension. 5. Hyperlipidemia. RECOMMENDATIONS: 1. Ms. Locke presented with chest pain concerning for coronary insufficiency. 2. She has been started on heparin, and we will currently be starting nitroglycerin drip. 3. Due to her elevated troponin as well as her convincing typical angina, I would recommend cardiac catheterization planned for Monday. 4. Risks, benefits, and alternatives have been explained to her and she consents. 5. If chest pain is unrelieved with nitroglycerin or she becomes hemodynamically or electrically unstable, this will need to be done on a more emergent basis. 6. We will check a 2-D echo to look at her overall left ventricular function, cardiac structure, and possible valvulopathies. 7. Further recommendations will be made based on the hospital course. Thank you for allowing me to see Radhika Locke. If there are any questions, please do not hesitate to call. DO OLVIN Freitas/christina , 01:48 PM , 02:00 PM
--- NOTE | 2018-08-11 18:25 | P.PNIM ---
Subjective Interval history: Patient is currently chest pain-free, no complaints of shortness of breath. She is anxious about the cardiac catheterization Physical Exam Vital signs: Vital Signs 08/10/18 23:35 08/11/18 02:25 08/11/18 04:03 Temperature 97.7 F Pulse Rate 102 H 90 93 H Respiratory Rate 18 20 Blood Pressure 136/74 158/70 H Pulse Oximetry 98 100 99 08/11/18 05:21 08/11/18 07:11 08/11/18 08:00 Temperature 98.4 F Pulse Rate 88 94 H Respiratory Rate Blood Pressure 134/68 Pulse Oximetry 99 98 98 08/11/18 08:19 08/11/18 08:30 08/11/18 09:00 Temperature 98.1 F Pulse Rate 89 96 H 84 Respiratory Rate 21 18 Blood Pressure 155/71 H 146/97 H Pulse Oximetry 99 99 08/11/18 10:00 08/11/18 11:00 08/11/18 12:00 Temperature 98.2 F Pulse Rate 92 H 72 71 Respiratory Rate 18 Blood Pressure 142/91 H Pulse Oximetry 98 08/11/18 13:00 08/11/18 14:00 08/11/18 15:00 Temperature Pulse Rate 76 78 73 Respiratory Rate Blood Pressure Pulse Oximetry 08/11/18 16:00 08/11/18 17:00 Temperature 97.5 F L Pulse Rate 72 76 Respiratory Rate 16 Blood Pressure 126/74 Pulse Oximetry 96 Intake & Output 08/10/18 08/11/18 08/11/18 18:59 06:59 18:59 Intake Total 1000 / 1000 Balance 1000 / 1000 Weight 86.183 kg Intake: IV 1000 / 1000 NS Inj 1,000 ML @ 100 mls/hr IV 1000 / 1000 .CONT .Q10H [facility] Rx#:[id number] Other: # Voids 2 Date of Last Bowel Movement 08/08/18 Narrative: General patient in no acute distress, no chest pain, no shortness of breath currently. HEENT extraocular movements are intact, clear oropharyngeal mucosa, no JVD Cardiovascular S1-S2 audible, RRR, no murmurs rubs or gallops Respiratory clear to auscultation bilaterally Abdomen soft, nontender, nondistended, normal bowel sounds Extremities no edema 2+ distal pulses in bilateral upper and lower extremities Neuro cranial nerves II through XII intact Results - Labs CBC & Chem 7: 11/03/18 06:21 08/11/18 03:00 Laboratory Results - last 24 hr 08/11/18 08/11/18 08/11/18 03:00 03:00 03:00 WBC 5.2 RBC 4.47 Hgb 14.4 Hct 42.7 MCV 95.5 MCH 32.3 MCHC 33.8 RDW 13.5 Plt Count 178 MPV 7.8 Neut % (Auto) 42.6 Lymph % (Auto) 47.2 H [place] % (Auto) 7.1 Eos % (Auto) 2.4 Baso % (Auto) 0.7 Neut # (Auto) 2.2 Lymph # (Auto) 2.4 [place] # (Auto) 0.4 Eos # (Auto) 0.1 Baso # (Auto) 0.0 WBC Differential . Differential Comment Auto diff final PT INR APTT D-Dimer Quant (PE/DVT) 0.19 Sodium 143 Potassium 3.8 Chloride 109 H Carbon Dioxide 26.2 Anion Gap 8 BUN 10 Creatinine 1.40 H Estimated GFR 39 L Random Glucose 96 Hemoglobin A1c Calcium 8.6 Total Bilirubin 0.4 AST 22 ALT 26 Alkaline Phosphatase 146 H Troponin I 0.15 H Total Protein 7.1 Albumin 3.8 Triglycerides Cholesterol LDL Cholesterol, Calc HDL Cholesterol Cholesterol/HDL Ratio 08/11/18 08/11/18 08/11/18 03:00 06:21 06:21 WBC 5.4 RBC 4.38 Hgb 14.4 Hct 42.9 MCV 97.9 MCH 32.9 MCHC 33.6 RDW 13.8 Plt Count 169 MPV 8.0 Neut % (Auto) Lymph % (Auto) [place] % (Auto) Eos % (Auto) Baso % (Auto) Neut # (Auto) Lymph # (Auto) [place] # (Auto) Eos # (Auto) Baso # (Auto) WBC Differential Differential Comment PT 10.1 INR 1.0 APTT 26.9 D-Dimer Quant (PE/DVT) Sodium Potassium Chloride Carbon Dioxide Anion Gap BUN Creatinine Estimated GFR Random Glucose Hemoglobin A1c 5.1 Calcium Total Bilirubin AST ALT Alkaline Phosphatase Troponin I Total Protein Albumin Triglycerides Cholesterol LDL Cholesterol, Calc HDL Cholesterol Cholesterol/HDL Ratio 08/11/18 08/11/18 08/11/18 09:59 10:35 17:04 WBC RBC Hgb Hct MCV MCH MCHC RDW Plt Count MPV Neut % (Auto) Lymph % (Auto) [place] % (Auto) Eos % (Auto) Baso % (Auto) Neut # (Auto) Lymph # (Auto) [place] # (Auto) Eos # (Auto) Baso # (Auto) WBC Differential Differential Comment PT INR APTT 40.9 H D 46.2 H D-Dimer Quant (PE/DVT) Sodium Potassium Chloride Carbon Dioxide Anion Gap BUN Creatinine Estimated GFR Random Glucose Hemoglobin A1c Calcium Total Bilirubin AST ALT Alkaline Phosphatase Troponin I 0.11 H Total Protein Albumin Triglycerides 74 Cholesterol 156 LDL Cholesterol, Calc 61 HDL Cholesterol 80.7 H Cholesterol/HDL Ratio 1.93 - Imaging Impressions Chest X-Ray 08/11/18 03:03 CONCLUSION: Mild parenchymal opacity at the left lung base, similar to prior study Assessment and Plan - Assessment (1) NSTEMI (non-ST elevated myocardial infarction) Code(s): I21.4 - Non-ST elevation (NSTEMI) myocardial infarction Status: Acute (2) CKD (chronic kidney disease) Code(s): N18.9 - Chronic kidney disease, unspecified Status: Acute (3) Migraine Code(s): G43.909 - Migraine, unspecified, not intractable, without status migrainosus Status: Acute - Plan This patient is a 57-year-old female with a diagnosis of migraines, documented chronic kidney disease stage III. The patient presented to the emergency department with complaints of chest pain and shortness of breath. She says that the chest pain was going on and off for 1 month. 1. Non-ST segment elevation [place] The patient presented with left-sided chest pain. EKG was done which shows normal sinus rhythm no acute ST segment or T wave changes. Troponins were found to be elevated at 0.15. Patient was started on aspirin, statin, beta-latisha, and heparin drip. Cardiology was consulted to evaluate the patient. Subsequent troponin levels showed a downtrend. Patient is currently chest pain-free. Continue to monitor on telemetry. Chest x-ray shows an opacity at the left lung base, similar to a previous study. Patient has no cough, no fevers. Plan is for cardiac catheterization on Monday. 2. CKD stage III Patient serum creatinine in 2017 was also around 1.3. I will follow-up with an a.m. renal panel. DVT prophylaxis, patient is currently on a heparin drip
[2018-08-11] MEDS: Morphine Sulfate Inj 2 MG/ML Vial IV.PUSH PRN (20:49)
[2018-08-12] MEDS: Sod Chloride 0.9% Inj 1,000 ML IV.CONT SCH ×3 (03:56→20:32)
[2018-08-12] MEDS: Heparin Drip 25,000 UNIT/250 ML BAG IV.CONT PRN (05:00)
[2018-08-12] MEDS: Morphine Sulfate Inj 2 MG/ML Vial IV.PUSH PRN ×2 (08:56→20:31)
[2018-08-12] MEDS: Metoprolol Tartrate 25 MG Tablet PO SCH ×2 (08:57→20:32)
[2018-08-12] MEDS: Sodium Chloride 0.9% 2 ML Flush BID IV.FLUSH SCH ×2 (08:57→20:32)
[2018-08-12] MEDS: Senna/Docusate Sodium 8.6/50 MG Tablet PO SCH ×2 (08:57→20:32)
--- NOTE | 2018-08-12 09:56 | P.PNIM ---
Subjective Interval history: Patient says that she has a headache this morning. She denies any chest pain, no shortness of breath. Physical Exam Vital signs: Vital Signs 08/11/18 11:00 08/11/18 12:00 08/11/18 13:00 Temperature 98.2 F Pulse Rate 72 71 76 Respiratory Rate 18 Blood Pressure 142/91 H Pulse Oximetry 98 08/11/18 14:00 08/11/18 15:00 08/11/18 16:00 Temperature 97.5 F L Pulse Rate 78 73 72 Respiratory Rate 16 Blood Pressure 126/74 Pulse Oximetry 96 08/11/18 17:00 08/11/18 18:00 08/11/18 19:00 Temperature Pulse Rate 76 72 80 Respiratory Rate Blood Pressure Pulse Oximetry 08/11/18 20:00 08/11/18 21:00 08/11/18 22:00 Temperature 98.2 F Pulse Rate 89 82 77 Respiratory Rate 20 Blood Pressure 134/80 Pulse Oximetry 98 08/11/18 23:00 08/11/18 23:52 08/11/18 23:59 Temperature 98 F Pulse Rate 78 70 70 Respiratory Rate 20 Blood Pressure 111/65 Pulse Oximetry 97 08/12/18 01:00 EDT 08/12/18 01:00 EST 08/12/18 02:00 Temperature Pulse Rate 72 72 70 Respiratory Rate Blood Pressure Pulse Oximetry 08/12/18 03:00 08/12/18 03:59 08/12/18 04:00 Temperature 97.8 F Pulse Rate 68 67 67 Respiratory Rate 18 Blood Pressure 107/63 Pulse Oximetry 97 08/12/18 05:00 08/12/18 05:55 08/12/18 07:00 Temperature Pulse Rate 69 72 82 Respiratory Rate Blood Pressure Pulse Oximetry Intake & Output 08/11/18 08/12/18 08/12/18 19:59 06:59 18:59 Intake Total Output Total Balance Weight Intake: IV Heparin/D5W 25,000 U/250 mL 25, 000 unit In 250 ml @ Per Protocol IV.CONT TITRATE PRN Rx #:[id number] NS Inj 1,000 ML @ 100 mls/hr IV .CONT .Q10H [facility] Rx#:[id number] Oral Output: Urine Other: # Voids Date of Last Bowel Movement # Bowel Movements Narrative: General patient complains of a headache this morning, no chest pain, no shortness of breath. HEENT extraocular movements are intact, clear oropharyngeal mucosa, no JVD Cardiovascular S1-S2 audible, RRR, no murmurs rubs or gallops Respiratory clear to auscultation bilaterally Abdomen soft, nontender, nondistended, normal bowel sounds Extremities no edema 2+ distal pulses in bilateral upper and lower extremities Neuro cranial nerves II through XII intact Results - Labs CBC & Chem 7: 08/11/18 06:21 08/11/18 03:00 Laboratory Results - last 24 hr 08/11/18 08/11/18 08/11/18 06:21 10:35 17:04 APTT 46.2 H Hemoglobin A1c 5.1 Troponin I 0.11 H Triglycerides 74 Cholesterol 156 LDL Cholesterol, Calc 61 HDL Cholesterol 80.7 H Cholesterol/HDL Ratio 1.93 Assessment and Plan - Assessment (1) NSTEMI (non-ST elevated myocardial infarction) Code(s): I21.4 - Non-ST elevation (NSTEMI) myocardial infarction Status: Acute (2) CKD (chronic kidney disease) Code(s): N18.9 - Chronic kidney disease, unspecified Status: Acute (3) Migraine Code(s): G43.909 - Migraine, unspecified, not intractable, without status migrainosus Status: Acute - Plan This patient is a 57-year-old female with a diagnosis of migraines, documented chronic kidney disease stage III. The patient presented to the emergency department with complaints of chest pain and shortness of breath. She says that the chest pain was going on and off for 1 month. 1. Non-ST segment elevation [place] Patient denies any chest pain overnight. The plan will be for a cardiac catheterization tomorrow. Cardiology following. Continue to monitor on telemetry. Continue aspirin, statin, beta-latisha, heparin drip. I will follow-up with cardiology after the cardiac catheterization tomorrow. 2. Migraines Patient complains of a headache today. She takes sumatriptan at home. Sumatriptan started today. 2. CKD stage III Patient serum creatinine in 2017 was also around 1.3. A.m. labs for today are pending. I will follow-up the labs. DVT prophylaxis, patient is currently on a heparin drip
--- NOTE | 2018-08-12 12:13 | P.PNCA ---
Subjective Interval history: No events overnight Having a migraine No chest pain Nitro at 10 mcg/min Medications and Allergies Active Medications: Active Medications Acetaminophen (Tylenol) 650 mg PO Q4H PRN PRN Reason: Temp > 100.4 Al Hydroxide/Mg Hydroxide (Milk Of Magnesia Liq) 30 ml PO Q12H PRN PRN Reason: Mild Constipation Aspirin (Ecotrin) 81 mg PO DAILY [facility] Last Admin: 08/12/18 08:57 Dose: 81 mg Atorvastatin Calcium (Lipitor) 40 mg PO HS [facility] Last Admin: 08/11/18 20:36 Dose: 40 mg Bisacodyl (Dulcolax Supp) 10 mg RECTAL DAILY PRN PRN Reason: SEVERE CONSITIPATION Budesonide/Formoterol Fumarate (Symbicort 80/4.5 Mcg Inh) 2 puff INH BID [facility] Sodium Chloride (Ns Inj) 1,000 mls @ 100 mls/hr IV.CONT .Q10H [facility] Last Admin: 08/12/18 09:04 Dose: 100 mls/hr Heparin Sodium/Dextrose (Heparin/D5w 25,000 U/250 Ml) 25,000 unit in 250 mls @ 0 mls/hr IV.CONT TITRATE PRN; Protocol PRN Reason: Per Protocol Last Admin: 08/12/18 05:00 Dose: 1,000 units/hr, 10 mls/hr Nitroglycerin/Dextrose (Nitroglycerin Drip Premix) 50 mg in 250 mls @ 0 mls/hr IV.CONT TITRATE PRN; Protocol PRN Reason: Per Protocol Last Titration: 08/11/18 13:45 Dose: 10 mcg/min, 3 mls/hr Lactulose (Lactulose Liq) 30 ml PO DAILY PRN PRN Reason: SEVERE CONSITIPATION Metoprolol Tartrate (Lopressor) 12.5 mg PO BID [facility] Last Admin: 08/12/18 08:57 Dose: 12.5 mg Morphine Sulfate (Morphine Inj) 2 mg IV.PUSH Q4H PRN PRN Reason: PAIN 6-10 Last Admin: 08/12/18 08:56 Dose: 2 mg Ondansetron HCl (Zofran Inj) 4 mg IV.PUSH Q6H PRN PRN Reason: NAUSEA OR VOMITING Senna/Docusate Sodium (Jenna-Colace) 1 tab PO BID [facility] Last Admin: 08/12/18 08:57 Dose: 1 tab Sennosides (Senokot) 17.2 mg PO Q12H PRN PRN Reason: Moderate Constipation Sodium Chloride (Ns Flush) 2 ml IV.FLUSH BID [facility] Last Admin: 08/12/18 08:57 Dose: 2 ml Sodium Chloride (Ns Flush) 2 ml IV.FLUSH PRN PRN PRN Reason: FLUSH AFTER USING IV ACCESS Allergies Allergy/AdvReac Type Severity Reaction Status Date / Time No Known Allergies Allergy Uncoded 06/29/17 09:56 Home Medications Medication Instructions Recorded Confirmed Type atorvastatin 40 mg PO DAILY 08/11/18 08/11/18 History budesonide-formoterol [Symbicort] 2 puff INHALATION BID 08/11/18 08/11/18 History chlorpromazine 25 mg PO BID 08/11/18 08/11/18 History cyclobenzaprine 10 mg PO BID 08/11/18 08/11/18 History divalproex 500 mg PO BID 08/11/18 08/11/18 History hydroxyzine HCl 50 mg PO BID 08/11/18 08/11/18 History levothyroxine 175 mcg PO DAILY 08/11/18 08/11/18 History quetiapine 50 mg PO BID 08/11/18 08/11/18 History quetiapine 300 mg PO HS 08/11/18 08/11/18 History ranitidine HCl 150 mg PO DAILY 08/11/18 08/11/18 History sucralfate 1 g PO DAILY 08/11/18 08/11/18 History sumatriptan succinate 50 mg PO HS 08/11/18 08/11/18 History venlafaxine 100 mg PO DAILY 08/11/18 08/11/18 History Physical Exam Vital signs: Vital Signs 08/11/18 14:00 08/11/18 15:00 08/11/18 16:00 Temperature 97.5 F L Pulse Rate 78 73 72 Respiratory Rate 16 Blood Pressure 126/74 Pulse Oximetry 96 08/11/18 17:00 08/11/18 18:00 08/11/18 19:00 Temperature Pulse Rate 76 72 80 Respiratory Rate Blood Pressure Pulse Oximetry 08/11/18 20:00 08/11/18 21:00 08/11/18 22:00 Temperature 98.2 F Pulse Rate 89 82 77 Respiratory Rate 20 Blood Pressure 134/80 Pulse Oximetry 98 08/11/18 23:00 08/11/18 23:52 08/11/18 23:59 Temperature 98 F Pulse Rate 78 70 70 Respiratory Rate 20 Blood Pressure 111/65 Pulse Oximetry 97 08/12/18 01:00 EDT 08/12/18 01:00 EST 08/12/18 02:00 Temperature Pulse Rate 72 72 70 Respiratory Rate Blood Pressure Pulse Oximetry 08/12/18 03:00 08/12/18 03:59 08/12/18 04:00 Temperature 97.8 F Pulse Rate 68 67 67 Respiratory Rate 18 Blood Pressure 107/63 Pulse Oximetry 97 08/12/18 05:00 08/12/18 05:55 08/12/18 07:00 Temperature Pulse Rate 69 72 82 Respiratory Rate Blood Pressure Pulse Oximetry 08/12/18 08:00 08/12/18 09:00 08/12/18 10:00 Temperature 97.8 F Pulse Rate 65 66 62 Respiratory Rate 16 Blood Pressure 133/83 Pulse Oximetry 96 08/12/18 11:00 08/12/18 12:00 Temperature 97.9 F Pulse Rate 66 67 Respiratory Rate 16 Blood Pressure 145/86 H Pulse Oximetry 97 Intake & Output 08/11/18 08/12/18 08/12/18 19:59 06:59 18:59 Intake Total Output Total Balance Weight Intake: IV Heparin/D5W 25,000 U/250 mL 25, 000 unit In 250 ml @ Per Protocol IV.CONT TITRATE PRN Rx #:[id number] NS Inj 1,000 ML @ 100 mls/hr IV .CONT .Q10H [facility] Rx#:[id number] Oral Output: Urine Other: # Voids Date of Last Bowel Movement # Bowel Movements Narrative: General patient complains of a headache this morning, no chest pain, no shortness of breath. HEENT extraocular movements are intact, clear oropharyngeal mucosa, no JVD Cardiovascular S1-S2 audible, RRR, no murmurs rubs or gallops Respiratory clear to auscultation bilaterally Abdomen soft, nontender, nondistended, normal bowel sounds Extremities no edema 2+ distal pulses in bilateral upper and lower extremities Neuro cranial nerves II through XII intact Results 08/11/18 06:21 08/11/18 03:00 Cardiac Enzymes 08/11/18 08/11/18 Range/Units 03:00 10:35 AST 22 (15-37) U/L Troponin I 0.15 H 0.11 H (0.02-0.05) ng/mL Coagulation 08/11/18 08/11/18 08/11/18 Range/Units 03:00 09:59 17:04 PT 10.1 (9.8-11.6) sec APTT 26.9 40.9 H D 46.2 H (23.4-31.7) sec Lipids 08/11/18 Range/Units 10:35 Triglycerides 74 (42-150) mg/dL Cholesterol 156 (120-200) mg/dL HDL Cholesterol 80.7 H (40.0-60.0) mg/dL Cholesterol/HDL Ratio 1.93 Ratio CBC 08/11/18 08/11/18 Range/Units 03:00 06:21 WBC 5.2 5.4 (4.0-11.0) th/mm3 RBC 4.47 4.38 (4.00-5.30) mil/mm3 Hgb 14.4 14.4 (11.6-15.3) gm/dL Hct 42.7 42.9 (35.0-46.0) % Plt Count 178 169 (150-450) th/mm3 Neut # (Auto) 2.2 (1.8-7.7) th/mm3 Lymph # (Auto) 2.4 (1.0-4.8) th/mm3 [place] # (Auto) 0.4 (0.0-0.9) th/mm3 Eos # (Auto) 0.1 (0.0-0.4) th/mm3 Baso # (Auto) 0.0 (0.0-0.2) th/mm3 Comprehensive Metabolic Panel 08/11/18 Range/Units 03:00 Sodium 143 (136-145) meq/L Potassium 3.8 (3.5-5.1) meq/L Chloride 109 H (98-107) meq/L Carbon Dioxide 26.2 (21.0-32.0) meq/L BUN 10 (7-18) mg/dL Creatinine 1.40 H (0.50-1.00) mg/dL Calcium 8.6 (8.5-10.1) mg/dL AST 22 (15-37) U/L ALT 26 (10-53) U/L Alkaline Phosphatase 146 H (45-117) U/L Total Protein 7.1 (6.4-8.2) g/dL Albumin 3.8 (3.4-5.0) g/dL Intake and Output 08/11/18 08/12/18 08/12/18 23:59 06:59 14:59 Intake Total Output Total Balance Intake: IV Heparin/D5W 25,000 U/250 mL 25, 000 unit In 250 ml @ Per Protocol IV.CONT TITRATE PRN Rx #:[id number] NS Inj 1,000 ML @ 100 mls/hr IV .CONT .Q10H [facility] Rx#:[id number] Oral Output: Urine Other: # Voids # Bowel Movements Weight - Imaging and Cardiology Imaging: Impressions Chest X-Ray 08/11/18 03:03 CONCLUSION: Mild parenchymal opacity at the left lung base, similar to prior study Assessment and Plan - Assessment (1) NSTEMI (non-ST elevated myocardial infarction) Code(s): I21.4 - Non-ST elevation (NSTEMI) myocardial infarction Status: Acute (2) CKD (chronic kidney disease) Code(s): N18.9 - Chronic kidney disease, unspecified Status: Acute (3) Migraine Code(s): G43.909 - Migraine, unspecified, not intractable, without status migrainosus Status: Acute - Plan 1) [place]/NSTEMI Troponin not as high as I though, but with typical angina will plan on cardiac catheterization NPO after midnight and plan for tomorrow Risks, benefits and alternative discussed with her 2) 2D echo pending 3) Migraines
[2018-08-12 12:31] LABS: Baso % (Auto) 0.4 % (0.0-2.0); Eos # (Auto) 0.1 th/mm3 (0.0-0.4); Eos % (Auto) 2.9 % (0.0-4.0); Hemoglobin 14.1 gm/dL (11.6-15.3); Lymph # (Auto) 1.4 th/mm3 (1.0-4.8); Lymph % (Auto) 34.8 % (9.0-44.0); Mean Corpuscular HGB Conc 35.1 % (32.0-36.0); Mean Corpuscular Hemoglobin 33.6 pg (27.0-34.0); Mean Corpuscular Volume 95.5 fL (80.0-100.0); Mean Platelet Volume 8.1 fL (7.0-11.0); Mono # (Auto) 0.3 th/mm3 (0.0-0.9); Mono % (Auto) 6.4 % (0.0-8.0); Neut # (Auto) 2.2 th/mm3 (1.8-7.7); Neut % (Auto) 55.5 % (16.0-70.0); Platelet Count 132 th/mm3 (150-450); Red Blood Count 4.19 mil/mm3 (4.00-5.30); Red Cell Distribution Width 13.5 % (11.6-17.2)
[2018-08-12 12:53] LABS: Albumin 3.4 g/dL (3.4-5.0); Anion Gap 8 meq/L (5-15); Aspartate Aminotransferase 20 U/L (15-37); Blood Urea Nitrogen 7 mg/dL (7-18); Calcium 8.4 mg/dL (8.5-10.1); Chloride 113 meq/L (98-107); Glomerular Filtration Rate 54 mL/min (>89); Glucose,Random 96 mg/dL (74-106); Potassium 3.9 meq/L (3.5-5.1); Sodium 145 meq/L (136-145)
[2018-08-12 12:58] LABS: Alanine Aminotransferase 23 U/L (10-53); Alkaline Phosphatase 131 U/L (45-117); Beta HCG,Quantitative 5 mIU/mL (0-5); Total Protein 6.7 g/dL (6.4-8.2)
--- NOTE | 2018-08-12 14:53 | ECHRPT ---
Indication: CORONARY ATHEROSCLEROSIS CONCLUSIONS Normal left ventricular size. Wall thickness is normal. The left ventricular systolic function is normal with an estimated ejection fraction in the range of 60-65%. Mild mitral valve regurgitation. BP: / HR: Rhythm: MEASUREMENTS (Male / Female) Normal Values Technical Quality: 2D ECHO LV Diastolic Diameter PLAX 4.3 cm 4.2 - 5.9 / 3.9 - 5.3 cm LV Systolic Diameter PLAX 3.2 cm IVS Diastolic Thickness 0.9 cm 0.6 - 1.0 / 0.6 - 0.9 cm LVPW Diastolic Thickness 0.8 cm 0.6 - 1.0 / 0.6 - 0.9 cm LV Relative Wall Thickness 0.4 RV Internal Dim ED PLAX 1.9 cm LA Systolic Diameter LX 3.1 cm 3.0 - 4.0 / 2.7 - 3.8 cm DOPPLER MR Peak Velocity 528.0 cm/s MR Peak Gradient 111.5 mmHg Mitral E Point Velocity 66.6 cm/s Mitral A Point Velocity 82.9 cm/s Mitral E to A Ratio 0.8 LV E' Lateral Velocity 11.6 cm/s Mitral E to LV E' Lateral Ratio 5.7 LV E' Septal Velocity 8.2 cm/s Mitral E to LV E' Septal Ratio 8.1 TR Peak Velocity 119.0 cm/s TR Peak Gradient 5.7 mmHg Right Atrial Pressure 10.0 mmHg Pulmonary Artery Systolic Pressu 15.7 mmHg Right Ventricular Systolic Press 15.7 mmHg FINDINGS LEFT VENTRICLE Normal left ventricular size. Wall thickness is normal. The left ventricular systolic function is normal with an estimated ejection fraction in the range of 60-65%. RIGHT VENTRICLE Normal right ventricular size and systolic function. LEFT ATRIUM The left atrial size is normal. RIGHT ATRIUM The right atrial size is normal. ATRIAL SEPTUM Normal atrial septal thickness without atrial level shunting by limited color doppler interrogation. AORTA The aortic root and proximal ascending aorta are normal in size on limited imaging. MITRAL VALVE Mild mitral valve regurgitation. AORTIC VALVE Trileaflet aortic valve. No aortic valve stenosis or regurgitation. TRICUSPID VALVE Structurally normal tricuspid valve. No tricuspid valve stenosis or regurgitation. PULMONARY VALVE No pulmonary valve regurgitation or stenosis. VESSELS The inferior vena cava is normal in size. PERICARDIUM No pericardial effusion. Trever Negrete MD (Electronically Signed) Final Date:12 August 2018 14:52
[2018-08-12] MEDS: Budesonide-Formoterol 80/4.5 MCG 6.9 GM Inhaler INH SCH (20:33)
--- NOTE | 2018-08-13 00:18 | ECG ---
Date Performed: 08/10/2018 Time Performed: 23:47:12 PTAGE: 57 years EKG: Sinus rhythm MARKED LEFT AXIS DEVIATION ABNORMAL ECG PREVIOUS TRACING : 12/28/2014 19.47 Compared to previous tracing, ST/T wave changes no longer noted DOCTOR: Domo Kaiser Interpretating Date/Time 08/13/2018 00:16:14
[2018-08-13] MEDS: Heparin Drip 25,000 UNIT/250 ML BAG IV.CONT PRN (03:24)
[2018-08-13] MEDS: Sod Chloride 0.9% Inj 1,000 ML IV.CONT SCH ×2 (05:37→15:56)
[2018-08-13 07:08] LABS: Hemoglobin 12.8 gm/dL (11.6-15.3); Mean Corpuscular HGB Conc 34.5 % (32.0-36.0); Mean Corpuscular Hemoglobin 32.9 pg (27.0-34.0); Mean Corpuscular Volume 95.4 fL (80.0-100.0); Mean Platelet Volume 7.8 fL (7.0-11.0); Platelet Count 134 th/mm3 (150-450); Red Blood Count 3.87 mil/mm3 (4.00-5.30); Red Cell Distribution Width 13.5 % (11.6-17.2); White Blood Count 4.2 th/mm3 (4.0-11.0)
[2018-08-13] MEDS: Sodium Chloride 0.9% 2 ML Flush BID IV.FLUSH SCH (08:57)
[2018-08-13] MEDS: Budesonide-Formoterol 80/4.5 MCG 6.9 GM Inhaler INH SCH (08:57)
[2018-08-13] MEDS: Metoprolol Tartrate 25 MG Tablet PO SCH (08:57)
[2018-08-13] MEDS: Senna/Docusate Sodium 8.6/50 MG Tablet PO SCH (08:57)
[2018-08-13] MEDS: Morphine Sulfate Inj 2 MG/ML Vial IV.PUSH PRN (08:58)
--- NOTE | 2018-08-13 09:23 | P.PNIM ---
Subjective Interval history: Patient complains of a headache this morning. She says the sumatriptan helped her yesterday. She does not have any other complaints. Physical Exam Vital signs: Vital Signs 08/12/18 10:00 08/12/18 11:00 08/12/18 12:00 Temperature 97.9 F Pulse Rate 62 66 64 Respiratory Rate 16 Blood Pressure 145/86 H Pulse Oximetry 97 08/12/18 12:51 08/12/18 13:14 08/12/18 15:00 Temperature Pulse Rate 63 64 74 Respiratory Rate Blood Pressure Pulse Oximetry 08/12/18 16:00 08/12/18 17:00 08/12/18 17:45 Temperature 98.1 F Pulse Rate 76 68 65 Respiratory Rate 20 Blood Pressure 130/85 Pulse Oximetry 100 08/12/18 19:00 08/12/18 20:00 08/12/18 21:00 Temperature 98 F Pulse Rate 73 70 68 Respiratory Rate 20 Blood Pressure 153/93 H Pulse Oximetry 98 08/12/18 22:00 08/12/18 23:00 08/12/18 23:32 Temperature Pulse Rate 65 69 65 Respiratory Rate Blood Pressure Pulse Oximetry 08/12/18 23:33 08/13/18 01:00 08/13/18 02:00 Temperature 98.3 F Pulse Rate 65 69 66 Respiratory Rate 18 Blood Pressure 140/72 Pulse Oximetry 96 08/13/18 03:00 08/13/18 04:00 08/13/18 05:00 Temperature 98.1 F Pulse Rate 69 64 70 Respiratory Rate 20 Blood Pressure 117/70 Pulse Oximetry 100 08/13/18 06:00 08/13/18 07:00 Temperature Pulse Rate 74 71 Respiratory Rate Blood Pressure Pulse Oximetry Intake & Output 08/12/18 08/13/18 08/13/18 18:59 06:59 18:59 Intake Total 1620 / 1620 1730 / 1730 Output Total 550 / 550 700 / 700 Balance 1070 / 1070 1030 / 1030 Weight 86.8 kg Intake: IV 1000 / 1000 1250 / 1250 Heparin/D5W 25,000 U/250 mL 25, 250 / 250 000 unit In 250 ml @ Per Protocol IV.CONT TITRATE PRN Rx #:[id number] NS Inj 1,000 ML @ 100 mls/hr IV 1000 / 1000 1000 / 1000 .CONT .Q10H [facility] Rx#:[id number] Oral 620 / 620 480 / 480 Output: Urine 550 / 550 700 / 700 Other: # Bowel Movements 0 Narrative: General patient complains of a headache HEENT extraocular movements are intact, clear oropharyngeal mucosa, no JVD Cardiovascular S1-S2 audible, RRR, no murmurs rubs or gallops Respiratory clear to auscultation bilaterally Abdomen soft, nontender, nondistended, normal bowel sounds Extremities no edema 2+ distal pulses in bilateral upper and lower extremities Neuro cranial nerves II through XII intact Results - Labs CBC & Chem 7: 08/13/18 06:23 08/12/18 11:10 Laboratory Results - last 24 hr 08/12/18 08/12/18 08/12/18 11:10 11:10 11:10 WBC 4.0 RBC 4.19 Hgb 14.1 Hct 40.0 MCV 95.5 MCH 33.6 MCHC 35.1 RDW 13.5 Plt Count 132 L MPV 8.1 Neut % (Auto) 55.5 Lymph % (Auto) 34.8 [place] % (Auto) 6.4 Eos % (Auto) 2.9 Baso % (Auto) 0.4 Neut # (Auto) 2.2 Lymph # (Auto) 1.4 [place] # (Auto) 0.3 Eos # (Auto) 0.1 Baso # (Auto) 0.0 WBC Differential . Differential Comment Auto diff final APTT 49.5 H Sodium 145 Potassium 3.9 Chloride 113 H Carbon Dioxide 24.0 Anion Gap 8 BUN 7 Creatinine 1.05 H Estimated GFR 54 L Random Glucose 96 Calcium 8.4 L Total Bilirubin 0.4 AST 20 ALT 23 Alkaline Phosphatase 131 H Total Protein 6.7 Albumin 3.4 Beta HCG, Quant 5 08/13/18 06:23 WBC 4.2 RBC 3.87 L Hgb 12.8 Hct 37.0 MCV 95.4 MCH 32.9 MCHC 34.5 RDW 13.5 Plt Count 134 L MPV 7.8 Neut % (Auto) Lymph % (Auto) [place] % (Auto) Eos % (Auto) Baso % (Auto) Neut # (Auto) Lymph # (Auto) [place] # (Auto) Eos # (Auto) Baso # (Auto) WBC Differential Differential Comment APTT Sodium Potassium Chloride Carbon Dioxide Anion Gap BUN Creatinine Estimated GFR Random Glucose Calcium Total Bilirubin AST ALT Alkaline Phosphatase Total Protein Albumin Beta HCG, Quant Assessment and Plan - Assessment (1) NSTEMI (non-ST elevated myocardial infarction) Code(s): I21.4 - Non-ST elevation (NSTEMI) myocardial infarction Status: Acute (2) CKD (chronic kidney disease) Code(s): N18.9 - Chronic kidney disease, unspecified Status: Acute (3) Migraine Code(s): G43.909 - Migraine, unspecified, not intractable, without status migrainosus Status: Acute - Plan This patient is a 57-year-old female with a diagnosis of migraines, documented chronic kidney disease stage III. The patient presented to the emergency department with complaints of chest pain and shortness of breath. She says that the chest pain was going on and off for 1 month. 1. Non-ST segment elevation MA Patient denies any chest pain overnight. The plan will be for a cardiac catheterization today. Cardiology following. Continue to monitor on telemetry. Continue aspirin, statin, beta-latisha, heparin drip. I will follow-up with cardiology after the cardiac catheterization today. 2. Migraines Patient complains of a headache, sumatriptan help yesterday. We will give the patient sumatriptan. 2. CKD stage III Serum creatinine 1.0 as of yesterday. DVT prophylaxis, patient is currently on a heparin drip
[2018-08-13] MEDS ORDERED: Heparin/NS PF Inj 1,500 ML ONE (09:42)
[2018-08-13] MEDS ORDERED: Heparin 10,000 UNITS/10 ML Vial (for IV use) ONE (09:42)
[2018-08-13] MEDS ORDERED: fentaNYL Citrate Inj 100 MCG/2 ML Ampul ONE (10:06)
--- NOTE | 2018-08-13 10:35 | CATHPROC ---
[employer] HIS Report Study Information Study Number Admission Scheduled Start Study Start [id number] Aug 11 2018 4:10AM 08/13/2018 Aug 13 2018 9:42AM [place] Service Cardiac Pacer/ICD Admit Source Facility Department Emergency department [facility] - Fiscal Manager Physician and Clinical Staff Initial Domo Nogueira Patient Care Secretary Sonali Amato,KUNAL Recorder Sophia Coles,RT(R) Scrub Anthony Cardona,RT(R) Procedures Performed Procedure Location (Site) Vessel Name Coronary Angiograms LCA Left Coronary Coronary Angiograms RCA Right Coronary L Heart Cath Equipment Time Rehabilitation Counselor Description Size Mfg Part Number Used/Scraped TRANSDUCER, TRUWAVE [id number] 09:43 MONZON SCHULTE * Used W/STOCKCOCK *[id number] 09:43 [employer] BLANKET,WARM AIR CCL * Used *[id number] 09:43 [employer] PACK, CCL CUSTOM * Used *[id number] 09:43 [employer] SUPPORT, ARTERIAL ADULT 13568 *[id number] Used [id number] 10:01 [employer]fund[employer]ONIC JL 3.5 DXTERITY CATHETER FR 5 Used *[id number] 10:01 MEDTRONIC JR 4.0 DXTERITY CATHETER FR 5 Used *[id number] BAND, RADIAL COMPRESSION TR [id number] 10:24 NephroPlus MEDICAL 24CM Used SHORT 24 *[id number] 09:43 [employer]ou WIRE, EXCHANGE 260CM 3MMJ 260CM Used *[id number] 09:43 NAMIC MANIFOLD, 4 PORT * Used *[id number] 09:43 NYCOMED OMNIPAQUE, 350 MG, 150ML 150ML [id number] Used SHEATH, FR6 TRANSRADIAL [id number] 09:43 [facility] [employer] MEDICAL FR 6 Used SLENDER 10CM *[id number] Equipment Model, Serial, Lot Number and Expiration Data Description Model Number Serial Number Lot Number Expiration Date JR 4.0 DXTERITY CATHETER [id number] 12-07-2020 History: Current Medications Medication Dosage/Unit Route Frequency Last Date/Time Taken LIPITOR LOPRESSOR ASA History: Risk Factors Hypertension Dyslipidemia Yes Yes Chronic Lung Disease Labs Hgb (g/dl) Hct (%) WBC (l/cumm) Platelets (thousands) 11.60-17.00 35.00-51.00 4.00-11.00 150.00-450.00 12.8 37 4.2 134 Glucose (mg/dl) BUN (mg/dl) Creatinine (mg/dl) BUN:Creatinine (1:x) 74.00-106.00 7.00-18.00 0.50-1.30 10.00-20.00 96 7 1.0 7 Na (meq/l) K (meq/l) 136.00-145.00 3.50-5.10 145 3.9 INR (PTT:PT) 0.90-1.10 1 Troponin I (ng/ml) CPK-MB (ng/ML) 0.02-0.05 0.50-3.60 0.11 Not Drawn Medication Medication Total Dose (Bolus/Oral) Medication Total Dosage/Unit 1% XYLOCAINE 5 mL FENTANYL 12.5 mcg RADIAL COCKTAIL 5 mL (Bolus) VERSED 0.5 mg Medications (Bolus/Oral) Medication Time Given Dosage/Unit Administered By Reason VERSED 08/13/2018 10:11:10 AM 0.5 mg Sonali Amato 0.5 mg VERSED given in lab by Sonali Amato RN in Left Antecubital via Peripheral IV. Ordered by Domo Kaiser FENTANYL 08/13/2018 10:12:21 AM 12.5 mcg Sonali Amato 12.5 mcg FENTANYL given in lab by Sonali Amato RN in Left Antecubital via Peripheral IV. Ordered by Domo Kaiser. 1% XYLOCAINE 08/13/2018 10:12:21 AM 5 mL Domo Kaiser 5 mL 1% XYLOCAINE given in lab by Domo Kaiser in Right Radial via Subcutaneous. RADIAL COCKTAIL 08/13/2018 10:13:33 AM 5 mL (Bolus) Domo Kaiser 5 mL (Bolus) RADIAL COCKTAIL given in lab by Domo Kaiser in Right Radial via Radial. Using [S olution Name]. Reason: Ntg 200mcg Verapamil 2.5mg Heparin 3400U. Medication (Drip) Medication Time Given Dosage/Unit Concentration/Unit Diluent (ml) Solution HEPARIN DRIP 08/13/2018 9:42:13 AM 1000 units/hr 73274 units 250 D5W Patient arrived on 1000 units/hr HEPARIN DRIP in Left Antecubital via Peripheral IV. Pump/Drip Flow = 10 ml/hr [place] [address] units in 250 ml. IV Solutions 08/13/2018 9:42:56 AM 50 mL (IV) NaCl .9 Patient arrived on IV Solutions via Peripheral IV. Pump/Drip Flow using NaCl .9. NITROGLYCERIN DRIP 08/13/2018 9:42:11 AM 5 mcg/min 50 mg 250 D5W Patient arrived on 5 mcg/min NITROGLYCERIN DRIP in Left Antecubital via Peripheral IV. Pump/Drip Flow = 1.5 ml/hr using D5W with a concentration of 50 mg in 250 ml. Initial Case Assessment Circulatory - Right Pulses Dorsalis Pedis Femoral Radial 2 2 2 Scale (0,1,2,3,4,d) Circulatory - Left Pulses Dorsalis Pedis Femoral Radial 2 2 Scale (0,1,2,3,4,d) Neurological State Oriented to time-place- Alert Moves all extremities person Chronological Log Time Study Chronological Log 9:41:47 Patient arrived via Bed. 9:41:48 Patient Name, D.O.B, / Armband Verified By R.N. 9:41:49 Consent signed by the physician and the patient and verified by the Fiscal Manager staff. 9:41:50 Pre-op and post- op instructions given; patient acknowledges understanding of instructions . 9:41:52 Presedation assessment performed by Fiscal Manager RN. 9:41:53 Allens test performed on the right radial and ulnar artery. 9:41:55 Patient has been NPO for More than 6Hrs. 9:41:56 Skin Breakdown- none per pt 9:42:05 Patient Warmer Placed on the Table. 9:42:07 Jeremías Prominences Protected 9:42:09 A # 20 IV was noted in the Hand (right). Grade = 0 9:42:09 A # 20 IV was noted in the Antecubital (left). Grade = 0 Patient arrived on 5 mcg/min NITROGLYCERIN DRIP in Left Antecubital via Peripheral IV. Pump/Dri p Flow = 1.5 ml/hr 9:42:11 using D5W with a concentration of 50 mg in 250 ml. Patient arrived on 1000 units/hr HEPARIN DRIP in Left Antecubital via Peripheral IV. Pump/Drip Flow = 10 ml/hr using 9:42:13 [place] [address] units in 250 ml. 9:42:56 Patient arrived on IV Solutions via Peripheral IV. Pump/Drip Flow using NaCl .9. 9:45:57 Heparin drip off. 9:48:11 History and physical on the chart or being dictated. Assessment: Initial Case Right Pulses: Hardik Ped=2, Femoral=2, Radial=2 9:48:12 Left Pulses: Hardik Ped=2, Femoral=2 Neurological: State=Alert, Ox3, MATHEW Vitals capture started with the following parameters, Patient=Adult, Interval=5 min, Initial Pr ozzjvr=525 mmHg, 9:52:53 Deflation Rate=5 mmHg, Cuff placed on Left Arm 9:53:31 HR=62 bpm, TGHK=449/82 mmhg, SpO2=97.0 %, Resp=8 B/min 9:55:20 Right Radial and groin(s) prepped with 2% chlorhexidine, and draped after a 3 min. waiting t amelia. 9:58:21 MD paged 9:58:24 HR=62 bpm, QHJH=136/81 mmhg, SpO2=98 %, Resp=17 B/min 10:00:27 Pressure channel 2 zeroed. 10:03:02 MD responded 10:03:29 HR=63 bpm, KVMP=532/74 mmhg, SpO2=95.0 %, Resp=18 B/min 10:04:16 Reference ECG taken 10:05:59 MD arrived. 10:08:30 HR=61 bpm, FCRX=230/68 mmhg, SpO2=94.0 %, Resp=13 B/min Time Out. Correct patient, correct procedure, correct physician, labs, allergies, and equipment verified with laborer orchard 10:09:30 team present. Fire risk assesment completed (see hard stop sheet for coding). Time Out Conc urred by MD and individual staff in procedure. 10:10:21 NTG off. 0.5 mg VERSED given in lab by Sonali Amato, KUNAL in Left Antecubital via Peripheral IV. Order ed by Job, 10:11:10 Domo Membreno 12.5 mcg FENTANYL given in lab by Sonali Amato, KUNAL in Left Antecubital via Peripheral IV. O rdered by Job, 10:12:21 Vincent G. 10:12:21 5 mL 1% XYLOCAINE given in lab by Domo Kaiser in Right Radial via Subcutaneous. 10:12:34 Access site was Right Radial Artery . A SHEATH, FR6 TRANSRADIAL SLENDER 10CM FR 6 was advanced into the Radial (right) using the Perc utaneous 10:12:41 technique. 10:13:27 HR=62 bpm, RRNS=470/73 mmhg, SpO2=98.0 %, Resp=15 B/min 5 mL (Bolus) RADIAL COCKTAIL given in lab by Domo Kaiser in Right Radial via Radial. Us ing [Solution Name]. 10:13:33 Reason: Ntg 200mcg Verapamil 2.5mg Heparin 3400U. A JR 4.0 DXTERITY CATHETER FR 5 was advanced over a wire. OMNIPAQUE, 350 MG, 150ML 150ML was us ed for 10:13:51 injections. Recorded Pressure: LV, HR=65, Condition=Condition 1 10:14:47 (Left Ventricle) LV 111/1/13 Recorded Pressure: LV, Ao, HR=66, Condition=Condition 1 10:15:04 (Left Ventricle) LV 114/-9/18, (Aorta) Ao 104/65/83 Recorded Pressure: Ao, HR=64, Condition=Condition 1 10:15:27 (Aorta) Ao 100/68/83 10:15:41 The RCA was injected and visualized at various angles. OMNIPAQUE, 350 MG, 150ML 150ML use d. After removing the current catheter a JL 3.5 DXTERITY CATHETER FR 5 was advanced over a WIRE, EXCHANGE 260CM 10:18:26 3MMJ 260CM. 10:19:01 HR=63 bpm, FYMO=566/74 mmhg, SpO2=92.0 %, Resp=15 B/min 10:19:43 The LCA was injected and visualized at various angles. OMNIPAQUE, 350 MG, 150ML 150ML use d. 10:22:12 Catheter was removed 10:23:03 Case End (Physician broke scrub) Radial Compression Device Used. 10 mLs of air placed in BAND, RADIAL COMPRESSION TR SHORT 24 2 4CM. Affected 10:23:56 hand 96 % O2 saturation. 10:24:12 HR=65 bpm, NZJY=838/69 mmhg, SpO2=93.0 %, Resp=15 B/min 10:29:20 HR=59 bpm, FCQX=240/34 mmhg, SpO2=94.0 %, Resp=17 B/min 10:33:04 Vitals capture stopped. 10:34:21 No case complications noted. 10:34:24 Cine recording checked. 10:34:28 Report called to floor. 10:34:31 Bedside Report will be given. 10:34:35 A Left Heart Cath was performed. 10:34:35 Patient moved to stretcher End Study - Contrast Media Used In Study Contrast Total Opened (mL) Total Used (mL) Total Wasted (mL) Omnipaque 150 40 110 End Study - Maximum Contrast Load Max Contrast Load (mL) 429.5 End Study - Radiation Exposure Fluoro Time (minutes) 1.8 End Study - Patient Disposition Complications Transferred To Interventional Outcome No Telemetry Bed No attempt made
--- NOTE | 2018-08-13 11:27 | MA ---
cc: Domo Kaiser DO DATE: 08/13/2018 PROCEDURE: Left heart catheterization, coronary angiogram, moderate sedation 15 minutes. PREPROCEDURE DIAGNOSES: Chest pain, minimally elevated troponin. POSTPROCEDURE DIAGNOSIS: Mild coronary artery disease, possible myocardial bridging in the left anterior descending. MEDICATIONS: Versed 0.5 mg, fentanyl 12.5 mcg, heparin 200 mcg, verapamil 2.5 mg, heparin and 3400 units. CONTRAST USED: 40 mL. FLUOROSCOPY: 1.8 minutes. MODERATE SEDATION: 15 minutes. FRAILTY SCORE: Two. ESTIMATED BLOOD LOSS: 10 mL. PROCEDURAL SUMMARY: Radhika Locke is a pleasant 57-year-old female who came into [place] due to chest pain. She did have a minimally elevated troponin; but due to her typical symptoms, she was recommended cardiac catheterization. Risks, benefits, and alternatives were explained to her and she consented to such. She was brought to the lab and prepped in the usual sterile fashion. The right radial artery was accessed using a modified Seldinger technique and placement of a 5/6-Bulgarian slender sheath. This was easily aspirated and flushed. A JR4 was advanced over a J-wire to the ascending aorta and across the aortic valve for measurement of left ventricular pressure. This was pulled back across the aortic valve showing no significant gradient of aortic stenosis. JR4 was used for selective angiography of the right coronary artery system. This was exchanged out for a JL3.5, which was used first selective angiography of the left coronary artery system. JL3.5 was removed over a J wire. A radial band was placed over the arteriotomy site for hemostasis. Patient left the skilled labor cardiovascularly stable. FINDINGS: LEFT MAIN: Normal-sized vessel, which bifurcates into an LAD and circumflex with no significant disease. LEFT ANTERIOR DESCENDING: Normal-sized vessel with mild luminal irregularity throughout the proximal portion. It gives off 1 major diagonal, which is overall a large vessel with no disease. Distally, there is some possible mild myocardial bridging. Distally, the LAD becomes significantly small to the apex with diffuse disease. LEFT CIRCUMFLEX: Moderate size vessel with no significant disease. It supplies 2 obtuse marginals with tortuosity, but no significant disease. RCA: Moderate size vessel with no disease. It supplies a PDA as well as multiple small PLVS with no significant disease. LVEDP: 13. IMPRESSION: 1. Mild coronary artery disease by cardiac catheterization. 2. Hypertension. 3. Hyperlipidemia. RECOMMENDATIONS: 1. Ms. Locke appears to have mild coronary artery disease with possible myocardial bridging of the mid left anterior descending. 2. There are no lesions for intervention. 3. Would plan on placing her on a low dose of Norvasc to help with antianginal as well as antihypertensive properties. 4. Echo shows normal function. 5. If stable later today, could be discharged home. Thank you for allowing me to see Radhika Locke. If there are any questions, please do not hesitate to call. DO OLVIN Freitas/kb , 10:38 AM , 10:46 AM
[2018-08-13] MEDS ORDERED: Iohexol 350 MG/ML 50 ML Vial (for Cath Lab) IVCONTRAST ONE (12:13)
--- NOTE | 2018-08-13 14:16 | P.DS ---
Date of admission: 08/11/18 04:10 Primary care physician: Kevyn Rausch III, MD, R2 Brief History from admission: This is a 57-year-old female with a PMH of Migraine, CKD Stage III and h/o Hemiplegic Migraine who presented to the ER w/ complaints of chest pain, SOB and migraine. States chest pain has been ongoing x1 month, intermittent, substernal, associated w/ SOB, worse w/ exertion. DS: Diagnosis - Discharge Diagnosis (1) NSTEMI (non-ST elevated myocardial infarction) Status: Acute (2) CKD (chronic kidney disease) Status: Acute (3) Migraine Status: Acute DS: Medications - Discharge Medications Prescriptions: albuterol sulfate [Ventolin HFA] 1 puff INHALATION Q4-6H PRN #1 inhaler PRN Reason: Shortness Of Breath Or Wheezing amlodipine [Norvasc] 5 mg PO DAILY #30 tab aspirin 81 mg PO DAILY #30 tab atorvastatin 40 mg PO DAILY #30 tab budesonide-formoterol [Symbicort] 2 puff INHALATION BID #1 inhaler DS: Summary Hospital Course: This patient is a 57-year-old female with a diagnosis of migraines, documented chronic kidney disease stage III. The patient presented to the emergency department with complaints of chest pain and shortness of breath. She says that the chest pain was going on and off for 1 month. 1. Elevated troponins The patient presented with left-sided chest pain. EKG was done which shows normal sinus rhythm no acute ST segment or T wave changes. Troponins were found to be elevated at 0.15. Patient was started on aspirin, statin, beta-latisha, and heparin drip. Cardiology was consulted to evaluate the patient. Subsequent troponin levels showed a downtrend. Patient underwent cardiac catheterization which only showed mild disease. No significant lesions found during the cardiac catheterization. I discussed the case with cardiology who recommends discharging the patient on aspirin, and a statin. No beta-latisha or Plavix given the cardiac catheterization findings. She has been chest pain-free since after arrival in the hospital. Norvasc was started. 2. COPD The patient was previously on inhalers however has not been taking her inhalers while at home. She will be given a prescription for albuterol, and Symbicort. 3. Migraines Patient can continue her home medication of sumatriptan as needed. 4. Acute kidney injury on CKD stage III The patient presented with a serum creatinine of 1.4. After the initiation of IV fluids the patient's serum creatinine down trended to 1.0. She can follow-up with her primary care physician in the next 1-2 weeks. Patient will be discharged home today. - Time Spent with Patient Total time spent providing and/or coordinating discharge services: Greater than 30 minutes - Quality: VTE Deep Vein Thrombosis/Pulmonary Embolism Present on Admission: No Exam Vital signs: Vital Signs 08/12/18 15:00 08/12/18 16:00 08/12/18 17:00 Temperature 98.1 F Pulse Rate 74 76 68 Respiratory Rate 20 Blood Pressure 130/85 Pulse Oximetry 100 08/12/18 17:45 08/12/18 19:00 08/12/18 20:00 Temperature 98 F Pulse Rate 65 73 70 Respiratory Rate 20 Blood Pressure 153/93 H Pulse Oximetry 98 08/12/18 21:00 08/12/18 22:00 08/12/18 23:00 Temperature Pulse Rate 68 65 69 Respiratory Rate Blood Pressure Pulse Oximetry 08/12/18 23:32 08/12/18 23:33 08/13/18 01:00 Temperature 98.3 F Pulse Rate 65 65 69 Respiratory Rate 18 Blood Pressure 140/72 Pulse Oximetry 96 08/13/18 02:00 08/13/18 03:00 08/13/18 04:00 Temperature 98.1 F Pulse Rate 66 69 64 Respiratory Rate 20 Blood Pressure 117/70 Pulse Oximetry 100 08/13/18 05:00 08/13/18 06:00 08/13/18 07:00 Temperature Pulse Rate 70 74 71 Respiratory Rate Blood Pressure Pulse Oximetry 08/13/18 08:00 08/13/18 09:00 08/13/18 11:00 Temperature 97.9 F Pulse Rate 64 78 58 L Respiratory Rate 16 Blood Pressure 105/69 Pulse Oximetry 97 08/13/18 12:00 08/13/18 13:00 08/13/18 14:00 Temperature 98.1 F Pulse Rate 58 L 76 71 Respiratory Rate 18 Blood Pressure 104/59 L Pulse Oximetry 98 08/13/18 14:07 Temperature Pulse Rate 72 Respiratory Rate Blood Pressure Pulse Oximetry Intake & Output 08/12/18 08/13/18 08/13/18 18:59 06:59 18:59 Intake Total 1620 / 1620 1730 / 1730 250 / 250 Output Total 550 / 550 700 / 700 Balance 1070 / 1070 1030 / 1030 250 / 250 Weight 86.8 kg Intake: IV 1000 / 1000 1250 / 1250 250 / 250 Heparin/D5W 25,000 U/250 mL 25, 250 / 250 250 / 250 000 unit In 250 ml @ Per Protocol IV.CONT TITRATE PRN Rx #:[id number] NS Inj 1,000 ML @ 100 mls/hr IV 1000 / 1000 1000 / 1000 .CONT .Q10H JOAQUIM Rx#:[id number] Oral 620 / 620 480 / 480 Output: Urine 550 / 550 700 / 700 Other: # Bowel Movements 0 Narrative: General patient currently has no complaints HEENT extraocular movements are intact, clear oropharyngeal mucosa, no JVD Cardiovascular S1-S2 audible, RRR, no murmurs rubs or gallops Respiratory clear to auscultation bilaterally Abdomen soft, nontender, nondistended, normal bowel sounds Extremities no edema 2+ distal pulses in bilateral upper and lower extremities Neuro cranial nerves II through XII intact Results Procedures completed during hospitalization: Cardiac catheterization Labs on day of discharge: Labs from last 24 hours 08/13/18 06:23 WBC 4.2 RBC 3.87 L Hgb 12.8 Hct 37.0 MCV 95.4 MCH 32.9 MCHC 34.5 RDW 13.5 Plt Count 134 L MPV 7.8 - Impressions ITS Impressions Chest X-Ray 08/11/18 03:03 CONCLUSION: Mild parenchymal opacity at the left lung base, similar to prior study Discharge Plan - Discharge Disposition Patient Disposition: 01 Discharge Home - Discharge Condition Condition: Good - Discharge Order Discharge Orders: Discharge Order (Routine); Ordered 08/13/18 Ordered By: Pam Trent - Physicians Team Primary Care Provider: Kevyn Rausch III Attending Provider: Pam Trent Other Providers: Domo Kaiser DO
--- NOTE | 2018-08-13 22:48 | P.PNCA ---
Subjective Interval history: No events overnight Feels well Medications and Allergies Allergies Allergy/AdvReac Type Severity Reaction Status Date / Time No Known Allergies Allergy Uncoded 06/29/17 09:56 Home Medications Medication Instructions Recorded Confirmed Type chlorpromazine 25 mg PO BID 08/11/18 08/11/18 History cyclobenzaprine 10 mg PO BID 08/11/18 08/11/18 History divalproex 500 mg PO BID 08/11/18 08/11/18 History hydroxyzine HCl 50 mg PO BID 08/11/18 08/11/18 History levothyroxine 175 mcg PO DAILY 08/11/18 08/11/18 History quetiapine 50 mg PO BID 08/11/18 08/11/18 History quetiapine 300 mg PO HS 08/11/18 08/11/18 History ranitidine HCl 150 mg PO DAILY 08/11/18 08/11/18 History sucralfate 1 g PO DAILY 08/11/18 08/11/18 History sumatriptan succinate 50 mg PO HS 08/11/18 08/11/18 History venlafaxine 100 mg PO DAILY 08/11/18 08/11/18 History Physical Exam Vital signs: Vital Signs 08/12/18 23:00 08/12/18 23:32 08/12/18 23:33 Temperature 98.3 F Pulse Rate 69 65 65 Respiratory Rate 18 Blood Pressure 140/72 Pulse Oximetry 96 08/13/18 01:00 08/13/18 02:00 08/13/18 03:00 Temperature Pulse Rate 69 66 69 Respiratory Rate Blood Pressure Pulse Oximetry 08/13/18 04:00 08/13/18 05:00 08/13/18 06:00 Temperature 98.1 F Pulse Rate 64 70 74 Respiratory Rate 20 Blood Pressure 117/70 Pulse Oximetry 100 08/13/18 07:00 08/13/18 08:00 08/13/18 09:00 Temperature 97.9 F Pulse Rate 71 64 78 Respiratory Rate 16 Blood Pressure 105/69 Pulse Oximetry 97 08/13/18 11:00 08/13/18 12:00 08/13/18 13:00 Temperature 98.1 F Pulse Rate 58 L 58 L 76 Respiratory Rate 18 Blood Pressure 104/59 L Pulse Oximetry 98 08/13/18 14:00 08/13/18 14:07 08/13/18 16:00 Temperature 97.9 F Pulse Rate 71 72 68 Respiratory Rate 16 Blood Pressure 114/74 Pulse Oximetry 96 Intake & Output 08/13/18 08/13/18 08/14/18 06:59 18:59 06:59 Intake Total 1730 / 1730 1250 / 1250 Output Total 700 / 700 Balance 1030 / 1030 1250 / 1250 Weight 86.8 kg Intake: IV 1250 / 1250 1250 / 1250 Heparin/D5W 25,000 U/250 mL 25, 250 / 250 250 / 250 000 unit In 250 ml @ Per Protocol IV.CONT TITRATE PRN Rx #:[id number] NS Inj 1,000 ML @ 100 mls/hr IV 1000 / 1000 1000 / 1000 .CONT .Q10H JOAQUIM Rx#:[id number] Oral 480 / 480 Output: Urine 700 / 700 Other: # Bowel Movements 0 Narrative: General patient currently has no complaints HEENT extraocular movements are intact, clear oropharyngeal mucosa, no JVD Cardiovascular S1-S2 audible, RRR, no murmurs rubs or gallops Respiratory clear to auscultation bilaterally Abdomen soft, nontender, nondistended, normal bowel sounds Extremities no edema 2+ distal pulses in bilateral upper and lower extremities Neuro cranial nerves II through XII intact Results 08/13/18 06:23 08/12/18 11:10 Cardiac Enzymes 08/12/18 Range/Units 11:10 AST 20 (15-37) U/L Coagulation 08/12/18 Range/Units 11:10 APTT 49.5 H (23.4-31.7) sec CBC 08/12/18 08/13/18 Range/Units 11:10 06:23 WBC 4.0 4.2 (4.0-11.0) th/mm3 RBC 4.19 3.87 L (4.00-5.30) mil/mm3 Hgb 14.1 12.8 (11.6-15.3) gm/dL Hct 40.0 37.0 (35.0-46.0) % Plt Count 132 L 134 L (150-450) th/mm3 Neut # (Auto) 2.2 (1.8-7.7) th/mm3 Lymph # (Auto) 1.4 (1.0-4.8) th/mm3 Falls # (Auto) 0.3 (0.0-0.9) th/mm3 Eos # (Auto) 0.1 (0.0-0.4) th/mm3 Baso # (Auto) 0.0 (0.0-0.2) th/mm3 Comprehensive Metabolic Panel 08/12/18 Range/Units 11:10 Sodium 145 (136-145) meq/L Potassium 3.9 (3.5-5.1) meq/L Chloride 113 H (98-107) meq/L Carbon Dioxide 24.0 (21.0-32.0) meq/L BUN 7 (7-18) mg/dL Creatinine 1.05 H (0.50-1.00) mg/dL Calcium 8.4 L (8.5-10.1) mg/dL AST 20 (15-37) U/L ALT 23 (10-53) U/L Alkaline Phosphatase 131 H (45-117) U/L Total Protein 6.7 (6.4-8.2) g/dL Albumin 3.4 (3.4-5.0) g/dL Intake and Output 08/13/18 08/13/18 08/13/18 06:59 14:59 22:59 Intake Total 1730 / 1730 250 / 250 1000 / 1000 Output Total 700 / 700 Balance 1030 / 1030 250 / 250 1000 / 1000 Intake: IV 1250 / 1250 250 / 250 1000 / 1000 Heparin/D5W 25,000 U/250 mL 25, 250 / 250 250 / 250 000 unit In 250 ml @ Per Protocol IV.CONT TITRATE PRN Rx #:[id number] NS Inj 1,000 ML @ 100 mls/hr IV 1000 / 1000 1000 / 1000 .CONT .Q10H JOAQUIM Rx#:[id number] Oral 480 / 480 Output: Urine 700 / 700 Other: # Bowel Movements 0 Weight 86.8 kg Assessment and Plan - Assessment (1) CKD (chronic kidney disease) Code(s): N18.9 - Chronic kidney disease, unspecified Status: Acute (2) Migraine Code(s): G43.909 - Migraine, unspecified, not intractable, without status migrainosus Status: Acute (3) Elevated troponin Code(s): R74.8 - Abnormal levels of other serum enzymes Status: Acute - Plan 1) Elevated troponin Coronaries showing no significant disease Not an NSTEMI, elevated troponin minimal Possible HTN, anxiety and/or mild myocardial bridging of the LAD 2) EF 60-65% 3) Migraines 4) Cardiovascularly stable for discharge Add Norvasc No Plavix/BB/DEVONTE-I needed, not an NSTEMI
[2018-08-14] MEDS ORDERED: amLODIPine 5 MG Tablet PO SCH (09:00)
== END 2018-08-13 16:59 | disposition home or self-care (01) ==
LOC: NEPC 23:07 → NEDA 08-11 04:10 → HCIS 08-11 08:20
PROVIDERS: ADMIT Hospitalist; ATTEND Hospitalist